=== PATIENT | male | born 1950 | race Caucasian/White ===

== ENCOUNTER 2018-11-11 09:57 | Emergency (ER) | payer MEDICARE, BC ==
[2018-11-11] MEDS ORDERED: NS 0.9% 1000 ML** 1,000 ML IV ONE (10:10)
--- NOTE | 2018-11-11 10:16 | ED ---
Dizziness - HPI Summary HPI Summary: Pt is a 68 y/o male who presents to the ED c/o weakness. He was sent here by Dr. Garza for a low BP reading of 80/40. Pt c/o weakness and dizziness when standing. He denies any CP or SOB. He denies any falls. Pt notes that he saw Dr. Stewart 2 days ago to get cardioverted, but he was not since he was in normal sinus rhythm. PMHx AFib, CHF, COPD. Pt is on Eliquis and ASA. He is a current smoker. - History Of Current Complaint Chief Complaint: EDWeakness Stated Complaint: POSS LOW BLOOD PRESSURE Time Seen by Provider: 11/11/18 10:09 Hx Obtained From: Patient Onset/Duration: Still Present Timing: Hours - [employer] Character: Weak, Dizzy Aggravating Factor(s): Position Change - standing up Alleviating Factor(s): Nothing Associated Signs And Symptoms: Negative: Chest Pain, SOB - Allergies/Home Medications Allergies/Adverse Reactions: Allergies Allergy/AdvReac Type Severity Reaction Status Date / Time Penicillins Allergy Unknown Verified 07/24/18 18:33 Reaction Details Home Medications: Home Medications Amiodarone TAB* [Cordarone TAB*] 100 mg PO DAILY 11/11/18 [History Confirmed 03/24] Aspirin EC TAB* [Ecotrin EC Low Dose 81 MG*] 81 mg PO DAILY 11/11/18 [History Confirmed 11/11/18] Calcium Carbonate [Calcium] 600 mg PO DAILY 11/11/18 [History Confirmed 11/11/18 ] Carvedilol TAB* [Coreg TAB*] 12.5 mg PO QPM 11/11/18 [History Confirmed 11/11/18 ] Carvedilol TAB* [Coreg TAB*] 25 mg PO QAM 11/11/18 [History Confirmed 11/11/18] Cholecalciferol CAP/TAB(NF) [Vitamin D3 CAP/TAB (NF)] 1,000 unit PO DAILY [History Confirmed 11/11/18] Desvenlafaxine(NF) [Pristiq(NF)] 100 mg PO DAILY 11/11/18 [History Confirmed 03/24] Docusate Sodium 250 mg PO DAILY 11/11/18 [History Confirmed 11/11/18] FluvoxaMINE (NF) [Fluvoxamine (NF)] 25 mg PO BEDTIME 11/11/18 [History Confirmed 11/11/18] Multivitamins/Minerals TAB* [Theragran/minerals TAB*] 1 tab PO DAILY 11/11/18 [ History Confirmed 11/11/18] PMH/Surg Hx/FS Hx/Imm Hx Endocrine/Hematology History: Denies: Hx Anticoagulant Therapy, Hx Diabetes, Hx Thyroid Disease Cardiovascular History: Reports: Hx Atrial Fibrillation, Hx Congestive Heart Failure, Hx Hypercholesterolemia Denies: Hx Hypertension, Hx Pacemaker/ICD Respiratory History: Reports: Hx Chronic Obstructive Pulmonary Disease (COPD) Denies: Hx Asthma History: Denies: Hx Renal Disease Musculoskeletal History: Denies: Hx Osteoporosis Sensory History: Reports: Hx Cataracts - 2005 RIGHT EYE, Hx Contacts or Glasses - GLASSES Denies: Hx Hearing Aid Opthamlomology History: Reports: Hx Cataracts - 2005 RIGHT EYE, Hx Contacts or Glasses - GLASSES Neurological History: Denies: Hx Dementia, Hx Seizures Psychiatric History: Reports: Hx Anxiety, Hx Depression Denies: Hx Substance Abuse - Cancer History Cancer Type, 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 Hx Chemotherapy: No - Surgical History Surgery Procedure, Year, and Place: tonsilectomy,hand, Hx Anesthesia Reactions: No Infectious Disease History: No Infectious Disease History: Denies: Hx Hepatitis, Hx Human Immunodeficiency Virus (HIV), Traveled Outside the [place] in Last 30 Days - Family History Known Family History: Negative: Cardiac Disease, Diabetes - Social History Alcohol Use: Rare Hx Substance Use: No Substance Use Type: Reports: None Hx Tobacco Use: Yes Smoking Status (MU): Current Every Day Smoker Type: Cigarettes Have You Smoked in the Last Year: Yes Review of Systems Negative: Chest Pain Negative: Shortness Of Breath Neurological: Other - Dizziness Positive: Weakness All Other Systems Reviewed And Are Negative: Yes Physical Exam - Summary Physical Exam Summary: GENERAL: Patient is a well-developed and nourished M who is lying comfortable in the stretcher. Patient is not in any acute respiratory distress. HEAD AND FACE: Normocephalic EYES: PERRLA, EOMI x 2. EARS: Hearing grossly intact. MOUTH: Oropharynx within normal limits. NECK: Supple, trachea is midline, no adenopathy, no JVD, no carotid bruit. CHEST: Symmetric, no tenderness at palpation LUNGS: Clear to auscultation bilaterally. No wheezing or crackles. CVS: Regular rate and rhythm, S1 and S2 present, no murmurs or gallops appreciated. ABDOMEN: Soft, non-tender. Bowel sounds are normal. No abdominal abnormal pulsations. EXTREMITIES: Full ROM in all major joints, no edema, no cyanosis or clubbing. NEURO: Alert and oriented x 3. No acute neurological deficits. Speech is normal and follows commands. SKIN: Dry and warm Triage Information Reviewed: Yes Vital Signs On Initial Exam: Initial Vitals Temp Pulse Resp BP Pulse Ox 96.6 F 62 20 78/59 94 11/11/18 10:00 11/11/18 10:00 11/11/18 10:00 11/11/18 10:00 11/11/18 10:00 Vital Signs Reviewed: Yes Diagnostics - Vital Signs Vital Signs Temp Pulse Resp BP Pulse Ox 11/11/18 10:00 96.6 F 62 20 78/59 94 - Laboratory Result Diagrams: 11/11/18 10:14 11/11/18 10:14 Lab Statement: Any lab studies that have been ordered have been reviewed, and results considered in the medical decision making process. - Radiology CXR Radiology Interpretation Completed By: Radiologist Summary of Radiographic Findings: HYPERINFLATION. NO ACTIVE CARDIOPULMONARY DISEASE. ED physician reviewed radiology report. - EKG 10:13 Cardiac Rate: Other Rate - AFib - 88 bpm EKG Rhythm: Atrial Fibrillation Summary of EKG Findings: Nonspecific T waves in lateral leads. Prolonged QT interval. Re-Evaluation - Re-Evaluation First Eval Re-Evaluation Time: 11:50 Change: Improved Comment: Pt feels fine. Dizzy Course/Dx - Course Course Of Treatment: Pt is a 68 y/o male who presents to the ED c/o weakness, dizziness, and hypotension. A CXR was negative. An EKG revealed AFib at a rate of 88 bpm, non-specific T waves in lateral leads, and prolonged QT interval. Discussed case with Dr. Peña and Dr. Holden, who believe the orthostatic hypotension is due to the CHF. Pt is now asymptomatic and will be discharged with a final dx of orthostatic hypotension. I discussed results with patient and he reports feeling better. He is hemodynamically stable and safe for discharge. Strict return precautions given and he will otherwise follow up with his PCP. - Diagnoses Provider Diagnoses: Orthostatic hypotension - Provider Notifications Discussed Care Of Patient With: Quincy Peña Time Discussed With Above Provider: 12:00 Instructed by Provider To: Other - Dr. Peña will see the pt in the ED. At 13:50 spoke to MOI Hannon who consulted with Sigrid Holden MD. Dr. Holden believes his orthostatic hypotension is to be expected from his CHF. Pt is currently asymptomatic and can be discharged. Discharge - Sign-Out/Discharge Documenting (check all that apply): Patient Departure - Discharge Patient Received Moderate/Deep Sedation with Procedure: No - Discharge Plan Condition: Stable Disposition: HOME Patient Education Materials: Hypotension (ED) Referrals: Suki Pandya MD [Primary Care Provider] - (1-3 days) Additional Instructions: Follow up with your primary care physician in 1-3 days. RETURN TO THE EMERGENCY DEPARTMENT FOR CHANGING OR WORSENING SYMPTOMS. - Billing Disposition and Condition Condition: STABLE Disposition: Home - Attestation Statements Document Initiated by Scribe: Yes Documenting Scribe: Rita Mcdaniel Provider For Whom Scribe is Documenting (Include Credential): Ashlyn Castano MD Scribe Attestation: Rita Scott, scribed for Ashlyn Castano MD on 11/11/18 at 1838. Scribe Documentation Reviewed: Yes Provider Attestation: The documentation as recorded by the Rita aguilar accurately reflects the service I personally performed and the decisions made by , Ashlyn Castano MD Status of Scribe Document: Viewed
[2018-11-11 10:33] LABS: ABS Basophils 0.1 10^3/ul (0-0.2); ABS Eosinophils 1.1 10^3/ul (0-0.6); ABS Lymphocytes 2.3 10^3/ul (1.0-4.8); ABS Monocytes 0.8 10^3/ul (0-0.8); ABS Neutrophils 4.2 10^3/ul (1.5-7.7); ABS Nucleated RBC 0 10^3/ul; Eosinophil % 13.2 %; Hematocrit 46 % (42-52); Hemoglobin 15.2 g/dl (14.0-18.0); Lymphocyte % 26.6 %; Mean Corpuscular HGB Conc 33 g/dl (31-36); Mean Corpuscular Hemoglobin 30 pg (27-31); Mean Corpuscular Volume 91 fL (80-94); Mean Platelet Volume 7.8 fL (7.4-10.4); Nucleated Red Blood Cells % 0.1; Platelet Count 285 10^3/ul (150-450); Red Blood Count 5.11 10^6/ul (4.00-5.40); Red Cell Distribution Width 16 % (10.5-15); White Blood Count 8.5 10^3/ul (3.5-10.8)
[2018-11-11 10:45] LABS: Activated Partial Thrombo Time 38.9 seconds (26.0-36.3); INR 1.41 (0.77-1.02)
[2018-11-11 10:53] LABS: Albumin/Globulin Ratio 1.4 (1-3); Calcium 10.2 mg/dL (8.6-10.3); EGFR African American 68.5 (>60); EGFR Non-African American 56.6 (>60); Globulin 2.9 g/dL (2-4); Potassium 4.2 mmol/L (3.5-5.0); Total Bilirubin 0.4 mg/dL (0.2-1.0); Total Protein 6.9 g/dL (6.4-8.9)
[2018-11-11 10:54] LABS: Troponin I 0.01 ng/mL (<0.04)
--- OUTSIDE RECORDS SUMMARY | 2018-11-11 11:23 | XMS REPORT | Continuity of Care Document ---
:1950 External Reference #:[id number] Author Name Maru Zavala Care Team Providers Name Role Phone Suki Pandya MD Primary Care Physician Unavailable Payers Type Date Identification Numbers Payment Provider Subscriber Effective: 2017 Policy Number: [id number] Medicare Fanta Doherty PayID: [id number] [address] [place] [address] Effective: 2007 Policy Number: [id number] [facility] Fanta Doherty Group Number: [id number] [address] [address] PayID: [id number] [place] [address] Advance Directives Description No Information Available Problems Date Description Provider Status Onset: 11/22/2010 Chronic obstructive lung disease Suki Pandya M.D. Active Onset: 11/22/2010 Osteoporosis Suki Pandya M.D. Active Onset: 09/09/2016 Tobacco user Stephanie Garza MD Active Onset: 08/20/2018 Atrial fibrillation Suki Pandya M.D. 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 Quit at [facility] 04/15. Resumed 2011 Tobacco Use Start: Unknown End: Former Cigarette Quit smoking in Unknown Smoker July of 2018. Haas started smoking at age 18, smoked 1/2 ppd and more in earlier years Smoking Status Reviewed: 10/16/18 Former Cigarette Quit smoking in Smoker July of 2018. Haas started smoking at age 18, smoked 1/2 ppd and more in earlier years ETOH Use 2011 Denies alcohol use history of alcohol abuse. Quit 06/2012. reports last drink 4 years ago as of 07/23 Tobacco Use Start: Unknown Patient is a current 08-18-2018 currently smoker, smokes every one month non smoker day Recreational Drug Use Denies Drug Use Tobacco Use Start: Unknown 1 1/2PPD x 15 years Exercise Type/Frequency Exercises rarely Allergies, Adverse Reactions, Alerts Date Description Reaction Status Severity Comments 03/16/2010 Penicillin unknown Active Moderate Medications Medication Date Status Form Strength Qnty SIG Indications Ordering Provider Amiodarone HCL 10/16/ Active Tablets 200mg 90tab 1 twice a I48.91 Remy D. 2019 s day for 2 Brand, weeks then M.D. decrease to 1 a day Symbicort 09/09/ Active Aerosol 80-4.5mcg 30.6u 2 puff Stephanie 2015 /Act nits twice a day MD Kayla ( pt does not take) Docusate Sodium 01/04/ Active Capsules 100mg 60cap 1 by mouth Suki 2016 s once a day Mumtaz (currenty M.D. taking 250mg) Spiriva 08/09/ Active Capsules 18mcg 30cap inhale the Suki Handihaler 2012 s contents of Mumtaz, one capsule M.DBrenna in the handihaler once daily Fluvoxamine 06/01/ Active Caps ER 25mg 1 PO QHS Suki Maleate 2011 24HR Shalonda Pandya Multi Vitamin 04/11/ Active Tablets 1 po qd Suki Mens 2010 Shalonda Pandya Aspirin 03/17/ Active Tablets 81mg 30tab 1 tablet Suki 2010 s once daily Shalonda Pandya Vitamin D-3 / Active Tablets 1000Unit 90tab 1 po qd Unknown 0000 s Pristiq / Active 100mg 1 daily Unknown 0000 Olanzapine 00/ Active Tablets 2.5mg 1 by mouth Unknown 0000 every day Calcium 600 00/00/ Active Tablets 600mg 1 by mouth Unknown 0000 every day Eliquis / Active Tablets 5mg 60tab 1 by mouth Suki 0000 s twice a day Shalonda Pandya Carvedilol / Active Tablets 25mg 60tab 1 tab by Suki 0000 s mouth in [place], morning M.DBrenna Carvedilol / Active Tablets 12.5mg 60tab 1 by mouth Suki 0000 s in evening Shalonda Pandya Lasix / Active Tablets 20mg 60tab 1 by mouth Suki 0000 s every day Shalonda Pandya Multaq 09/22/ Hx Tablets 400mg 60tab 1 by mouth I48.91 Remy Bullard 2018 - s twice a day Brand, 10/16/ M.DBrenna 2019 Atovaquone-Prog 01/05/ Hx Tablets 250-100mg 15tab 1 tab by Chuyita Bullard uanil HCL 2017 - s mouth [place], 07/24/ daily, 2 M.D. 2018 days before trip, each day there, 7 days after return Ciprofloxacin 01/05/ Hx Tablets 500mg 6tabs 1 tab by Chuyita Bullard HCL 2017 - mouth twice [place], 07/24/ a day if M.D. 2017 needed for diarrhea Azithromycin 06/03/ Hx Tablets 250mg 6tabs 2 tabs by J44.1 2016 - mouth on , 06/12/ day 1; 1 .DBrenna 2016 tab by mouth every day on days 2-5 Nicotrol 08/15/ Hx Inhaler 10mg 168un use up to Z72.0 Suki 2016 - 16 times [place], 08/19/ daily M.D. 2016 Serevent Diskus 03/13/ Hx Aerosol 50mcg/Dos 60uni 1 2015 - e ts inhalation [place], 09/09/ every 12 M.D. 2016 hours Foradil 08/09/ Hx Capsules 12mcg 60cap [address] [facility] Aerolizer 2012 - s aerolizer [place], 03/13/ twice a day M.D. 2015 Azithromycin 07/06/ Hx Tablets 250mg 6tabs 2 tabs po 465.9 Suki 2013 - on day 1; 1 [place], 07/13/ tab po qd M.D. 2012 on days 2-5 Nicoderm CQ 04/11/ Hx Patches 21mg/24HR 30uni once daily Suki 2010 - 24HR ts [place], M.D. 2017 Nicotine 04/11/ Hx Patches 4mg/24HR 1Mon as directed Suki 2010 - 24HR [place], M.D. 2012 Foradil 04/11/ Hx Capsules 12mcg 60cap [address] [facility] Aerolizer 2010 - prn [place], M.D. 2012 Campral 04/11/ Hx Tablets DR 333mg 120ta 2 tabs PO Suki 2010 - bs bid [place], M.D. 2012 Revia 04/11/ Hx Tablets 50mg 30tab [address] [facility] 2010 - s [place], M.D. 2011 Alendronate 03/11/ Hx Tablets 70mg 12tab take 1 Suki Sodium 2010 - tablet once [place], 05/15/ weekly as M.D. 2016 directed Flovent HFA 11/22/ Hx Aerosol 110mcg/Ac 12gm [address] [facility] 2010 - t twice daily [place], M.D. 2011 Zoloft 05/21/ Hx Tablets 50mg 1 By Mouth Unknown 2009 - Once Daily 2010 Calcium 600 03/19/ Hx Tablets 600mg [address] [facility] 2009 - once daily [place], M.D. 2014 Spiriva 03/19/ Hx Capsules 18mcg 30cap inhale 496 [facility] Handihaler 2009 - s contents of [place], capsule M.D. 2012 by mouth every morning as directed Cymbalta 03/17/ Hx Caps DR 60mg 60cap 1 tablet Unknown 2009 - Part s once daily 2009 Nortriptyline 03/17/ Hx Capsules 10mg 100ca 2 tablets Suki HCL 2009 - ps once daily [place], M.D. 2010 Risperdal 03/17/ Hx Tablets 0.5mg 90tab Suki 2009 - s [place], M.D. 2009 Fosamax 03/16/ Hx Tablets 70mg 12tab one tablet Suki 2009 - s once weekly [place], as directed M.D. 2010 Metoprolol 03/16/ Hx Tablets 25mg 30tab Take 1/2 Suki Tartrate 2009 - s Tablet By Mumtaz, 07/30/ Mouth Twice M.D. 2018 Daily Zoloft / Hx Tablets 100mg 1 tablet Unknown 0000 - once daily 2009 Bactrim / Hx Tablets 400-80mg Unknown 0000 - 2010 Gabapentin / Hx Tablets 300mg 270ta 1 po qd prn Unknown 0000 - bs 2012 Luvox CR / Hx Caps ER 25mg 60cap take 1 tabs Unknown 0000 - 24HR s daily at 06/01/ bedtime 2011 Olanzapine / Hx Tablets 2.5mg take 1 Unknown 0000 - tablet by 07/06/ mouth once 2012 daily as needed Risperdal / Hx Tablets 0.25mg 1 po daily Unknown 0000 - 2015 Tylenol / Hx Capsules 325mg 2 tablets Unknown 0000 - every 4 12/04/ hours as 2018 needed for pain Digoxin / Hx Tablets 250mcg 60tab 1 by mouth Suki - s every day Mumtaz 09/22/ M.DBrenna 2018 Immunizations CPT Code Status Date Vaccine Lot # [id number] Given 07/20/2018 Influenza Virus Vaccine, Quadrivalent, Split, Preservative Free [id number] Given 01/05/2018 Tdap - Tetanus/Diptheria/Acellular Pertussis [id number] Given 01/05/2018 Typhoid Vaccine [id number] 57929 Given 01/05/2018 Hepatitis A Vaccine Adult Dosage [id number] 52166 Given 07/23/2017 Influenza Virus Vaccine, Quadrivalent, Split, Preservative Free [id number] Given 08/27/2016 Flu Vaccine NOS [id number] Given 07/06/2015 Influenza Virus Vaccine, Quadrivalent, Split, [id number] Preservative Free 18280 Given 07/06/2015 Pneumococcal Conjugate Vaccine 13 Valent For [id number] Intramuscular Use 65615 Given 07/13/2013 Flu Vaccine Split Virus Preservative Free For [id number] Indiv 3Yr Older 18197 Given 06/04/2013 Pneumonia Vaccine [id number] 08192 Given 10/03/2009 Administration Swine Flu Shot 04990 Given 10/03/2009 Influenza Virus Vaccine, Pandemic Formulation 12286 Given 03/17/2009 Zoster (Zostavax) 46261 Given 08/17/2008 Hepatitis B Vaccine Adult Dosage 73896 Given 08/17/2008 Hepatitis B Vaccine Adult Dosage 69446 Given 03/17/2008 Hepatitis B Vaccine Adult Dosage 66374 Given 03/17/2008 Hepatitis B Vaccine Adult Dosage 45372 Given 02/15/2008 Hepatitis B Vaccine Adult Dosage 87965 Given 02/15/2008 Hepatitis B Vaccine Adult Dosage 65432 Given 11/10/2006 Tdap - Tetanus/Diptheria/Acellular Pertussis Vital Signs Date Vital Result Comment 10/16/2018 11:04am Height 72 inches 6'0" Weight 155.00 lb with shoes Heart Rate 50 /min irreg BP Systolic Sitting 102 mmHg Lue, reg cuff BP Diastolic Sitting 70 mmHg Lue, reg cuff BP Systolic Standing 92 mmHg Lue, reg cuff BP Diastolic Standing 70 mmHg Lue, reg cuff Respiratory Rate 12 /min BMI (Body Mass Index) 21.0 kg/m2 Ejection Fraction 20-25% 09/22/18 09/09/2018 8:52am Height 72 inches 6'0" Weight 152.00 lb Heart Rate 52 /min BP Systolic Sitting 92 mmHg BP Diastolic Sitting 60 mmHg Respiratory Rate 14 /min O2 % BldC Oximetry 94 % BMI (Body Mass Index) 20.6 kg/m2 08/20/2018 4:31pm Height 72 inches 6'0" Weight 156.00 lb Heart Rate 75 /min BP Systolic Sitting 110 mmHg BP Diastolic Sitting 68 mmHg O2 % BldC Oximetry 95 % BMI (Body Mass Index) 21.2 kg/m2 08/18/2018 2:25pm Height 72 inches 6'0" Weight 155.38 lb Heart Rate 58 /min BP Systolic Sitting 110 mmHg regular adult cuff left arm BP Diastolic Sitting 84 mmHg regular adult cuff left arm O2 % BldC Oximetry 95 % at rest on room air BMI (Body Mass Index) 21.1 kg/m2 Ejection Fraction <21% 07-26-2018 08/06/2018 3:08pm Height 72 inches 6'0" Weight 160.00 lb Heart Rate 63 /min BP Systolic Sitting 93 mmHg BP Diastolic Sitting 72 mmHg O2 % BldC Oximetry 96 % BMI (Body Mass Index) 21.7 kg/m2 07/24/2018 4:04pm Height 72 inches 6'0" Weight 180.38 lb Heart Rate 86 /min Body Temperature 97.7 F O2 % BldC Oximetry 94 % BMI (Body Mass Index) 24.5 kg/m2 01/05/2018 1:20pm Height 72 inches 6'0" Weight 173.12 lb Heart Rate 84 /min BP Systolic Sitting 110 mmHg BP Diastolic Sitting 58 mmHg Respiratory Rate 14 /min Body Temperature 96.9 F BMI (Body Mass Index) 23.5 kg/m2 09/09/2017 10:00am Height 72 inches 6'0" Weight 170.00 lb w/ shoes Heart Rate 64 /min reg BP Systolic Sitting 104 mmHg Lue, reg cuff BP Diastolic Sitting 70 mmHg Lue, reg cuff Respiratory Rate 16 /min O2 % BldC Oximetry 98 % on Ra BMI (Body Mass Index) 23.1 kg/m2 08/19/2017 2:30pm Height 72 inches 6'0" Weight 165.50 lb Heart Rate 63 /min BP Systolic 108 mmHg BP Diastolic 54 mmHg Body Temperature 96.0 F O2 % BldC Oximetry 94 % BMI (Body Mass Index) 22.4 kg/m2 06/03/2017 11:28am Height 72 inches 6'0" Weight 161.00 lb Heart Rate 66 /min BP Systolic 100 mmHg BP Diastolic 58 mmHg Body Temperature 96.7 F O2 % BldC Oximetry 95 % BMI (Body Mass Index) 21.8 kg/m2 09/09/2016 10:05am Height 72 inches 6'0" Weight 170.00 lb Heart Rate 60 /min BP Systolic Sitting 112 mmHg BP Diastolic Sitting 62 mmHg Respiratory Rate 16 /min O2 % BldC Oximetry 96 % BMI (Body Mass Index) 23.1 kg/m2 08/15/2016 11:24am Height 72 inches 6'0" Weight 168.00 lb Heart Rate 56 /min BP Systolic Sitting 94 mmHg BP Diastolic Sitting 62 mmHg Respiratory Rate 15 /min Body Temperature 97.5 F O2 % BldC Oximetry 98 % BMI (Body Mass Index) 22.8 kg/m2 01/05/2016 2:17pm Weight 178.00 lb Heart Rate 61 /min BP Systolic Sitting 95 mmHg BP Diastolic Sitting 65 mmHg Body Temperature 96.7 F O2 % BldC Oximetry 98 % 07/12/2015 10:43am Height 72 inches 6'0" Weight 161.00 lb Pain Level 1 BMI (Body Mass Index) 21.8 kg/m2 07/06/2015 2:55pm Height 72 inches 6'0" Weight 161.00 lb Heart Rate 58 /min BP Systolic Sitting 94 mmHg BP Diastolic Sitting 49 mmHg Body Temperature 96.3 F O2 % BldC Oximetry 97 % BMI (Body Mass Index) 21.8 kg/m2 12/05/2014 10:02am Weight 167.50 lb Heart Rate 69 /min BP Systolic Sitting 106 mmHg BP Diastolic Sitting 61 mmHg O2 % BldC Oximetry 98 % 06/07/2014 3:30pm Height 72.5 inches 6'0.50" Weight 160.00 lb Heart Rate 60 /min BP Systolic Sitting 88 mmHg BP Diastolic Sitting 60 mmHg Body Temperature 97.1 F BMI (Body Mass Index) 21.4 kg/m2 08/09/2013 3:26pm Weight 156.00 lb Heart Rate 68 /min BP Systolic Sitting 122 mmHg BP Diastolic Sitting 80 mmHg 07/13/2013 9:33am Weight 151.00 lb Heart Rate 64 /min BP Systolic Sitting 124 mmHg BP Diastolic Sitting 78 mmHg Body Temperature 95.7 F O2 % BldC Oximetry 96 % Peak Flow Meter 260 250; 260; 230 07/06/2013 9:12am Weight 156.00 lb Heart Rate 68 /min BP Systolic Sitting 118 mmHg BP Diastolic Sitting 70 mmHg Body Temperature 97.8 F O2 % BldC Oximetry 96 % Peak Flow Meter 170 160; 170; 170 06/04/2013 2:02pm Height 72.5 inches 6'0.50" Weight 156.00 lb Heart Rate 70 /min BP Systolic Sitting 118 mmHg BP Diastolic Sitting 60 mmHg BMI (Body Mass Index) 20.9 kg/m2 12/03/2012 10:21am Height 72.5 inches 6'0.50" Weight 155.75 lb Heart Rate 72 /min BP Systolic Sitting 90 mmHg BP Diastolic Sitting 60 mmHg BMI (Body Mass Index) 20.8 kg/m2 06/01/2012 10:08am Height 72.5 inches 6'0.50" Weight 152.00 lb Heart Rate 64 /min BP Systolic Sitting 104 mmHg BP Diastolic Sitting 66 mmHg BMI (Body Mass Index) 20.3 kg/m2 02/11/2012 9:47am Height 72.5 inches 6'0.50" Weight 148.00 lb Heart Rate 68 /min BP Systolic Sitting 114 mmHg BP Diastolic Sitting 64 mmHg BMI (Body Mass Index) 19.8 kg/m2 11/15/2011 3:26pm Height 72.5 inches 6'0.50" Weight 147.00 lb Heart Rate 60 /min BP Systolic Sitting 100 mmHg BP Diastolic Sitting 60 mmHg BMI (Body Mass Index) 19.7 kg/m2 09/05/2011 9:55am Height 72.5 inches 6'0.50" Weight 145.00 lb Heart Rate 60 /min BP Systolic Sitting 100 mmHg L BP Diastolic Sitting 60 mmHg L BMI (Body Mass Index) 19.4 kg/m2 05/31/2011 10:11am Height 72.5 inches 6'0.50" Weight 152.00 lb Heart Rate 72 /min BP Systolic Sitting 98 mmHg L BP Diastolic Sitting 58 mmHg L BMI (Body Mass Index) 20.3 kg/m2 04/11/2011 11:47am Height 73 inches 6'1" Weight 156.00 lb Heart Rate 70 /min BP Systolic Sitting 98 mmHg BP Diastolic Sitting 64 mmHg BMI (Body Mass Index) 20.6 kg/m2 11/22/2010 10:28am Weight 148.00 lb Heart Rate 76 /min BP Systolic 104 mmHg BP Diastolic 60 mmHg O2 % BldC Oximetry 97 % 05/21/2010 3:56pm Weight 152.00 lb Heart Rate 76 /min BP Systolic 92 mmHg BP Diastolic 60 mmHg 03/19/2010 7:29pm Height 72 inches 6'0" Weight 155.50 lb Heart Rate 68 /min BP Systolic 106 mmHg BP Diastolic 70 mmHg O2 % BldC Oximetry 95 % BMI (Body Mass Index) 21.1 kg/m2 Results Test Date Facility Test Result H/L Range Note Laboratory test 08/10/2018 [facility] Digoxin 1.2 ng/ml N 0.8- 2.[address] [place] [address] [phone] Lipid Profile 08/06/2018 [facility] Triglycerides 91 mg/dL 1, 2 (Trig/Chol/HDL) [address] [place] [address] [phone] Cholesterol 154 mg/dL 3 HDL Cholesterol 47.0 mg/dL 4 LDL Cholesterol 89 mg/dL 5 Comp Metabolic Panel 08/06/2018 [facility] Sodium 143 mmol/L N 135-145 [address] [place] [address] [phone] Potassium 3.8 mmol/L N 3.5-5.0 Chloride 104 mmol/L N 101-111 Co2 Carbon Dioxide 36 mmol/L High 22-32 Anion Gap 3 mmol/L N 2-11 Glucose 91 mg/dL N 70-100 Blood Urea Nitrogen 17 mg/dL N 6-24 Creatinine 1.02 mg/dL N 0.67-1.17 BUN/Creatinine Ratio 16.7 N 8-20 Calcium 9.3 mg/dL N 8.6-10.3 Total Protein 6.0 g/dL Low 6.4-8.9 Albumin 3.8 g/dL N 3.2-5.2 Globulin 2.2 g/dL N 2-4 Albumin/Globulin Ratio 1.7 N 1-3 Total Bilirubin 0.60 mg/dL N 0.2-1.0 Alkaline Phosphatase 70 U/L N 34-104 Alt 43 U/L N 7-52 Ast 30 U/L N 13-39 Egfr Non- 72.2 >60 Egfr 87.4 >60 6 Laboratory test 08/06/2018 [facility] Digoxin 1.2 ng/ml N 0.8- 2.0 [address] [place] [address] [phone] Laboratory test 07/24/2018 [facility] Troponin-I 0.05 ng/mL High <0.[address] (TnI) [place] [address] [phone] CBC Auto Diff 07/24/2018 [facility] White Blood 9.8 N 3.5- 10.[address] Count 10^3/[place] [address] [phone] Red Blood Count 4.74 10^6/uL N 4.00-5.40 Hemoglobin 14.3 g/dL N 14.0-18.0 Hematocrit 43 % N 42-52 Mean Corpuscular Volume 91 fL N 80-94 Mean Corpuscular Hemoglobin 30 pg N 27-31 Mean Corpuscular HGB Conc 33 g/dL N 31-36 Red Cell Distribution Width 15 % N 10.5-15 Platelet Count 217 10^3/uL N 150-450 Mean Platelet Volume 8.6 um3 N 7.4-10.4 Abs Neutrophils 6.4 10^3/uL N 1.5-7.7 Abs Lymphocytes 1.9 10^3/uL N 1.0-4.8 Abs Monocytes 1.2 10^3/uL High 0-0.8 Abs Eosinophils 0.2 10^3/uL N 0-0.6 Abs Basophils 0.1 10^3/uL N 0-0.2 Abs Nucleated RBC 0 10^3/uL Granulocyte % 65.6 % N 38-83 Lymphocyte % 19.8 % Low 25-47 Monocyte % 12.0 % High 0-7 Eosinophil % 2.0 % N 0-6 Basophil % 0.6 % N 0-2 Nucleated Red Blood Cells % 0.1 Inr/Protime 07/24/2018 [facility] Inr 1.53 High 0.77-1.[address] [place] [address] [phone] Laboratory test 07/24/2018 [facility] Partial 27.2 N 26.0- 36.[address] [place] [address] Time PTT [phone] Lactic Acid 2.0 mmol/L N 0.5-2.0 9 B-Type Natriuretic Peptide BNP 1964 pg/mL High 10 Comp Metabolic Panel 07/24/2018 [facility] Sodium 137 mmol/L N 135-[address] [place] [address] [phone] Potassium 4.4 mmol/L N 3.5-5.0 Chloride 104 mmol/L N 101-111 Co2 Carbon Dioxide 24 mmol/L N 22-32 Anion Gap 9 mmol/L N 2-11 Glucose 125 mg/dL High 70-100 Blood Urea Nitrogen 23 mg/dL N 6-24 Creatinine 1.06 mg/dL N 0.67-1.17 BUN/Creatinine Ratio 21.7 High 8-20 Calcium 9.7 mg/dL N 8.6-10.3 Total Protein 5.9 g/dL Low 6.4-8.9 Albumin 3.7 g/dL N 3.2-5.2 Globulin 2.2 g/dL N 2-4 Albumin/Globulin Ratio 1.7 N 1-3 Total Bilirubin 0.90 mg/dL N 0.2-1.0 Alkaline Phosphatase 87 U/L N 34-104 Alt 314 U/L High 7-52 Ast 290 U/L High 13-39 Egfr Non- 69.1 >60 Egfr 83.6 >60 11 Laboratory test 07/24/2018 [facility] Magnesium 1.6 mg/dL Low 1.9-2.7 finding [address] [place] [address] [phone] Troponin-I (TnI) 0.04 ng/mL High <0.04 12 Thyroxine 8.63 g/mL N 6.09-12.23 TSH (Thyroid Stim Horm) 2.88 mcIU/mL N 0.34-5.60 D Dimer Quantitative 622 ng/mL High Less Than 230 13 Urinalysis Profile 07/24/2018 [facility] Urine Color Straw [address] [place] [address] [phone] Urine Appearance Clear Urine Specific [place] 1.006 Low 1.010-1.030 Urine pH 5.0 N 5-9 Urine Urobilinogen Negative Negative Urine Ketones Negative Negative Urine Protein Negative Negative Urine Leukocytes Negative Negative Urine Blood Negative Negative Urine Nitrite Negative Negative Urine Bilirubin Negative Negative Urine Glucose Negative Negative Laboratory test 03/09/2018 [facility] PSA Screening 1.719 ng/mL 0-4.0 14 finding [address] [place] [address] [phone] Lipid Profile 08/18/2017 [facility] Triglycerides 108 mg/dL 15 (Trig/Chol/HDL) [address] [place] [address] [phone] Cholesterol 188 mg/dL 16 HDL Cholesterol 62.2 mg/dL 17 LDL Cholesterol 104 mg/dL 18 Comp Metabolic Panel 08/18/2017 [facility] Sodium 143 mmol/L N 133-145 [address] [place] [address] [phone] Potassium 4.2 mmol/L N 3.5-5.0 Chloride 107 mmol/L N 101-111 Co2 Carbon Dioxide 32 mmol/L N 22-32 Anion Gap 4 mmol/L N 2-11 Glucose 89 mg/dL N 70-100 Blood Urea Nitrogen 20 mg/dL N 6-24 Creatinine 0.87 mg/dL N 0.67-1.17 BUN/Creatinine Ratio 23.0 High 8-20 Calcium 9.2 mg/dL N 8.6-10.3 Total Protein 5.9 g/dL Low 6.4-8.9 Albumin 3.9 g/dL N 3.2-5.2 Globulin 2.0 g/dL N 2-4 Albumin/Globulin Ratio 2.0 N 1-3 Total Bilirubin 0.30 mg/dL N 0.2-1.0 Alkaline Phosphatase 53 U/L N 34-104 Alt 20 U/L N 7-52 Ast 17 U/L N 13-39 Egfr Non- 87.0 >60 Egfr 111.9 >60 19 Laboratory test 09/03/2016 [facility] Surgical Interface SEE RESULT 20, [address] [place] [address] [phone] Lipid Profile 08/12/2016 [facility] Triglycerides 117 mg/dL N 22 (Trig/Chol/HDL) [address] [place] [address] [phone] Cholesterol 195 mg/dL N 23 HDL Cholesterol 61.3 mg/dL N 24 LDL Cholesterol 110 mg/dL N 25 Comp Metabolic Panel 08/12/2016 [facility] Sodium 140 mmol/L N 133-[address] [place] [address] [phone] Potassium 3.9 mmol/L N 3.5-5.0 Chloride 105 mmol/L N 101-111 Co2 Carbon Dioxide 30 mmol/L N 22-32 Anion Gap 5 mmol/L N 2-11 Glucose 88 mg/dL N 70-100 Blood Urea Nitrogen 11 mg/dL N 6-24 Creatinine 0.80 mg/dL N 0.67-1.17 BUN/Creatinine Ratio 13.8 N 8-20 Calcium 9.3 mg/dL N 8.6-10.3 Total Protein 6.3 g/dL Low 6.4-8.9 Albumin 4.1 g/dL N 3.2-5.2 Globulin 2.2 g/dL N 2-4 Albumin/Globulin Ratio 1.9 N 1-3 Total Bilirubin 0.40 mg/dL N 0.2-1.0 Alkaline Phosphatase 59 U/L N 34-104 Alt 17 U/L N 7-52 Ast 17 U/L N 13-39 Egfr Non- 96.1 N >60 Egfr 123.6 N >60 26 Laboratory test 08/12/2016 [facility] Vitamin D 45.5 ng/mL N 30-[address] Total 25(Oh) [place] [address] [phone] Hemoglobin A1c (Glyco HGB) 5.8 % N Less than 6.0 27 Basic Metabolic Panel 02/05/2016 [facility] Sodium 141 mmol/L N 133-145 [address] [place] [address] [phone] Potassium 4.0 mmol/L N 3.5-5.0 Chloride 105 mmol/L N 101-111 Co2 Carbon Dioxide 31 mmol/L N 22-32 Anion Gap 5 mmol/L N 2-11 Glucose 71 mg/dL N 70-100 Blood Urea Nitrogen 10 mg/dL N 6-24 Creatinine 0.82 mg/dL N 0.67-1.17 BUN/Creatinine Ratio 12.2 N 8-20 Calcium 9.2 mg/dL N 8.6-10.3 Egfr Non- 93.7 N >60 Egfr 120.5 N >60 28 Laboratory test 02/05/2016 [facility] PSA Screening 1.344 ng/mL N 0-4.0 29 finding [address] [place] [address] [phone] Lipid Profile 01/04/2016 [facility] Triglycerides 118 mg/dL N 30 (Trig/Chol/HDL) [address] [place] [address] [phone] Cholesterol 198 mg/dL N 31 HDL Cholesterol 58.6 mg/dL N 32 LDL Cholesterol 116 mg/dL N 33 Comp Metabolic Panel 01/04/2016 [facility] Sodium 141 mmol/L N 133-145 [address] [place] [address] [phone] Potassium 4.3 mmol/L N 3.5-5.0 Chloride 105 mmol/L N 101-111 Co2 Carbon Dioxide 31 mmol/L N 22-32 Anion Gap 5 mmol/L N 2-11 Glucose 95 mg/dL N 70-100 Blood Urea Nitrogen 16 mg/dL N 6-24 Creatinine 0.83 mg/dL N 0.67-1.17 BUN/Creatinine Ratio 19.3 N 8-20 Calcium 9.5 mg/dL N 8.6-10.3 Total Protein 5.6 g/dL Low 6.4-8.9 Albumin 4.0 g/dL N 3.2-5.2 Globulin 1.6 g/dL Low 2-4 Albumin/Globulin Ratio 2.5 N 1-3 Total Bilirubin 0.30 mg/dL N 0.2-1.0 Alkaline Phosphatase 58 U/L N 34-104 Alt 18 U/L N 7-52 Ast 16 U/L N 13-39 Egfr Non- 92.4 N >60 Egfr 118.8 N >60 34 Basic Metabolic Panel 06/26/2015 [facility] Sodium 139 mmol/L N 133-[address] [place] [address] [phone] Potassium 4.2 mmol/L N 3.5-5.0 Chloride 103 mmol/L N 101-111 Co2 Carbon Dioxide 30 mmol/L N 22-32 Anion Gap 6 mmol/L N 2-11 Glucose 97 mg/dL N 70-100 Blood Urea Nitrogen 13 mg/dL N 6-24 Creatinine 0.82 mg/dL N 0.67-1.17 BUN/Creatinine Ratio 15.9 N 8-20 Calcium 9.4 mg/dL N 8.6-10.3 Egfr Non- 93.7 N >60 Egfr 120.5 N >60 35 Laboratory 06/26/2015 [facility] PSA 0.846 ng/mL N 0-4.0 36 test finding [address] [place] [address] [phone] Laboratory 12/05/2014 [facility] Hepatitis C Nonreactive N Nonreactive test finding [address] [place] [address] [phone] Hemoglobin A1c 5.8 % N Less than 6.0 37 Vitamin D, 25 12/05/2014 [facility] 25-Hydroxy Vitamin <4.0 ng/ mL N Hydroxy [address] [place] [address] [phone] 25-Hydroxy Vitamin D3 54 ng/mL N 25-Hydroxy Vitamin D Total 54 ng/mL N 38 Comp Metabolic Panel 12/05/2014 [facility] Sodium 141 mmol/L N 133-[address] [place] [address] [phone] Potassium 3.9 mmol/L N 3.5-5.0 Chloride 104 mmol/L N 101-111 Co2 Carbon Dioxide 33 mmol/L High 22-32 Anion Gap 4 mmol/L N 2-11 Glucose 69 mg/dL Low 70-100 Blood Urea Nitrogen 12 mg/dL N 6-24 Creatinine 0.85 mg/dL N 0.67-1.17 BUN/Creatinine Ratio 14.1 N 8-20 Calcium 9.7 mg/dL N 8.6-10.3 Total Protein 6.3 g/dL Low 6.4-8.9 Albumin 4.3 g/dL N 3.2-5.2 Globulin 2.0 g/dL N 2-4 Albumin/Globulin Ratio 2.2 N 1-3 Total Bilirubin 0.20 mg/dL N 0.2-1.0 Alkaline Phosphatase 52 U/L N 34-104 Alt 20 U/L N 7-52 Ast 19 U/L N 13-39 Egfr Non- 90.2 N >60 Egfr 116.0 N >60 39 Lipid Profile 12/05/2014 [facility] Triglycerides 124 mg/dL N 40 (Trig/Chol/HDL) [address] [place] [address] [phone] Cholesterol 197 mg/dL N 41 HDL Cholesterol 59.6 mg/dL N 42 LDL Cholesterol 113 mg/dL N 43 Lipid Profile 05/21/2013 [facility] Triglycerides 80 mg/dL 40 -200 (Trig/Chol/HDL) [address] [place] [address] [phone] Cholesterol 205 mg/dL High Less than 200 HDL Cholesterol 59 mg/dL 40-60 44 Cholesterol/HDL Ratio 3.5 Average 1-4.44 LDL Cholesterol 130.0 High Less Than 100 45 Comp Metabolic Panel 05/21/2013 [facility] Sodium 139 mmol/L 133-145 [address] [place] [address] [phone] Potassium 4.3 mmol/L 3.5-5.0 Chloride 102 mmol/L 101-111 Co2 Carbon Dioxide 32.0 mmol/L 22-32 Anion Gap 5.0 mmol/L 2-11 Glucose 87 mg/dL 70-100 Blood Urea Nitrogen 9 mg/dL 6-24 Creatinine 0.80 mg/dL 0.50-1.40 BUN/Creatinine Ratio 11.3 8-20 Calcium 9.9 mg/dL 8.1-9.9 Total Protein 5.6 g/dL Low 6.2-8.1 Albumin 3.9 g/dL 3.2-5.2 Globulin 1.7 g/dL Low 2-4 Albumin/Globulin Ratio 2.3 1-3 Total Bilirubin 0.5 mg/dL 0.4-1.5 Alkaline Phosphatase 59 U/L 30-110 Alt 29 U/L 14-54 Ast 25 U/L 12-42 Egfr Non- 97.0 >60 Egfr 124.8 >60 46 Laboratory test 05/21/2013 [facility] Hemoglobin A1c 5.7 % Less than [address] [place] [address] [phone] CBC Auto Diff 05/21/2013 [facility] White Blood 6.8 4.8-10.[address] Count 10^3/[place] [address] [phone] Red Blood Count 4.29 10^6/uL 4.0-5.4 Hemoglobin 13.4 g/dL Low 14.0-18.0 Hematocrit 40 % Low 42-52 Mean Corpuscular Volume 93 fL 80-94 Mean Corpuscular Hemoglobin 31 pg 27-31 Mean Corpuscular HGB Conc 34 g/dL 31-36 Red Cell Distribution Width 13 % 10.5-15 Platelet Count 245 10^3/uL 150-450 Mean Platelet Volume 8 um3 7.4-10.4 Abs Neutrophils 2.5 10^3/uL 1.5-7.7 Abs Lymphocytes 2.7 10^3/uL 1.0-4.8 Abs Monocytes 0.6 10^3/uL 0-0.8 Abs Eosinophils 1.0 10^3/uL High 0-0.6 Abs Basophils 0.1 10^3/uL 0-0.2 Abs Nucleated RBC 0 10^3/uL Manual Differential 05/21/2013 [facility] Neutrophil % 32 % Low 38-[address] [place] [address] [phone] Lymphocytes % 51 % High 25-47 Monocytes % 4 % 0-13 Eosinophils % 9 % High 0-6 Basophil % 2 % 0-2 Reactive Lymph % 2 % 0-6 RBC Morphology Normal Normal Laboratory test 05/21/2013 [facility] Pathologist (SEE NOTE) [address] [place] [address] [phone] Laboratory test 05/21/2013 [facility] PSA Diagnostic 1.20 ng/mL 0-4.0 [address] [place] [address] [phone] CBC Auto Diff 08/25/2012 [facility] White Blood Count 8.1 10^3/ uL 4.8-[address] [place] [address] [phone] Red Blood Count 4.23 10^6/uL 4.0-5.4 Hemoglobin 13.5 g/dL Low 14.0-18.0 Hematocrit 40 % Low 42-52 Mean Corpuscular Volume 94 fL 80-94 Mean Corpuscular Hemoglobin 32 pg High 27-31 Mean Corpuscular HGB Conc 34 g/dL 31-36 Red Cell Distribution Width 13 % 10.5-15 Platelet Count 219 10^3/uL 150-450 Mean Platelet Volume 8 um3 7.4-10.4 Abs Neutrophils 3.8 10^3/uL 1.5-7.7 Abs Lymphocytes 2.6 10^3/uL 1.0-4.8 Abs Monocytes 0.7 10^3/uL 0-0.8 Abs Eosinophils 0.9 10^3/uL High 0-0.6 Abs Basophils 0.1 10^3/uL 0-0.2 Abs Nucleated RBC 0 10^3/uL Granulocyte % 46.9 % 38-83 Lymphocyte % 32.8 % 25-47 Monocyte % 8.5 % 1-9 Eosinophil % 11.1 % High 0-6 Basophil % 0.7 % 0-2 Nucleated Red Blood Cells % 0 Vitamin B12 And 08/25/2012 [facility] Vitamin B12 702 pg/mL 180-914 Folate Serum [address] [place] [address] [phone] Folate 24.5 NG/ML High 2-16 Laboratory test 08/25/2012 [facility] Ferritin 61 NG/ML 24- 336 finding [address] [place] [address] [phone] Iron & Iron Binding 08/25/2012 [facility] Iron 125 UG/ML 45- 182 Capacity [address] [place] [address] [phone] Unsaturated Iron Binding 210 g/dL Total Iron Binding Capacity 335 g/dL 250-450 Transferrin 239.1 % Iron Saturation 37 % 15-55 Laboratory test 08/25/2012 [facility] LDH 141 U/L 95-185 finding [address] [place] [address] [phone] Laboratory test 06/10/2012 [facility] PSA,Diagnostic 1.01 0- 4 [address] NG/[place] [address] [phone] Laboratory test 06/10/2012 [facility] Hemoglobin A1c 5.8 % Less Than [address] [place] [address] [phone] Lipid Profile 06/10/2012 [facility] Triglyceride 84 mg/dL 40- 200 (Trig/Chol/HDL) [address] [place] [address] [phone] Cholesterol 192 mg/dL Less Than 200 52 High Density Lipoprotein 62 mg/dL High 40-60 53 Cholesterol/HDL Ratio 3.10 AVERAGE 1-4.97 Low Density Lipoprotein 113 mg/dL High Less Than 100 54 Comp Metabolic Panel 06/10/2012 [facility] Sodium 139 mmol/L 135-[address] [place] [address] [phone] Potassium 4.2 mmol/L 3.5-5.0 Chloride 105 mmol/L 101-111 Co2 (Carbon Dioxide) 29.0 mmol/L 22-32 Anion Gap 5.0 mmol/L 2-11 55 Glucose 90 mg/dL 70-100 BUN 15 mg/dL 6-24 Creatinine 0.7 mg/dL 0.50-1.40 One Over Creatinine 1.42 BUN/Creatinine Ratio 21.4 High 8-20 Calcium 9.1 mg/dL 8.1-9.9 Total Protein 6.2 GM/DL 6.2-8.1 Albumin 4.1 GM/DL 3.2-5.2 Globulin 2.1 GM/DL 2-4 Albumin/Globulin Ratio 2.0 1-3 Bilirubin Total 0.6 mg/dL 0.4-1.5 56 Alkaline Phosphatase 56 U/L 39-117 Alt (SGPT) 25 U/L 17-63 Ast (Sgot) 23 U/L 12-42 eGFR Non- 113.5 > 60 eGFR 146.0 > 60 57 CBC Auto Diff 06/10/2012 [facility] White Blood 7.9 CUMM 4.8- 10.[address] [place] [address] [phone] Red Cell Count 4.02 CUMM Low 4.6-6.2 Hemoglobin 13.3 g/dL Low 14.0-18.0 Hematocrit 38 % Low 42-52 Mean Corpuscular Volume 94 um3 80-94 Mean Corpuscular Hemoglob 33 pg High 27-31 Mean Corpuscular HGB Cone 35 g/dL 32-36 Redcell Distribution WDTH 13 % 10.5-15 Platelet Count 197 CUMM 150-450 Mean Platelet Volume 8.6 um3 7.4-10.4 Gran % 41.1 % 38-83 Lymph % 34.9 % 20-45 Mononuclear % 8.4 % 1-9 Eosinophil % 14.8 % High 0-6 Basophil % 0.8 % 0-2 Abs Lymphs 2.8 1.0-4.8 Abs Mononuclear 0.7 0-0.8 Absolute Neutrophil Count 3.3 1.5-7.7 Abs Eosinophils 1.2 High 0-0.6 Abs Basophils 0.1 0-0.2 CBC Auto Diff 03/13/2012 [facility] White Blood 8.1 CUMM 4.8- 10.[address] [place] [address] [phone] Red Cell Count 4.33 CUMM Low 4.6-6.2 Hemoglobin 13.9 g/dL Low 14.0-18.0 Hematocrit 41 % Low 42-52 Mean Corpuscular Volume 94 um3 80-94 Mean Corpuscular Hemoglob 32 pg High 27-31 Mean Corpuscular HGB Cone 34 g/dL 32-36 Redcell Distribution WDTH 14 % 10.5-15 Platelet Count 236 CUMM 150-450 Mean Platelet Volume 8.1 um3 7.4-10.4 Gran % 57.9 % 38-83 Lymph % 30.5 % 25-47 Mononuclear % 9.2 % High 1-9 Eosinophil % 2.1 % 0-6 Basophil % 0.3 % 0-2 Abs Lymphs 2.5 1.0-4.8 Abs Mononuclear 0.8 0-0.8 Absolute Neutrophil Count 4.7 1.5-7.7 Abs Eosinophils 0.2 0-0.6 Abs Basophils 0 0-0.2 Comp Metabolic Panel 03/13/2012 [facility] Sodium 138 mmol/L 135-[address] [place] [address] [phone] Potassium 3.7 mmol/L 3.5-5.0 Chloride 99 mmol/L Low 101-111 Co2 (Carbon Dioxide) 29.0 mmol/L 22-32 Anion Gap 10.0 mmol/L 2-11 58 Glucose 212 mg/dL High 70-100 BUN 25 mg/dL High 6-24 Creatinine 1.3 mg/dL 0.50-1.40 One Over Creatinine 0.76 BUN/Creatinine Ratio 19.2 8-20 Calcium 9.8 mg/dL 8.1-9.9 Total Protein 6.2 GM/DL 6.2-8.1 Albumin 3.9 GM/DL 3.2-5.2 Globulin 2.3 GM/DL 2-4 Albumin/Globulin Ratio 1.7 1-3 Bilirubin Total 0.8 mg/dL 0.4-1.5 59 Alkaline Phosphatase 69 U/L 39-117 Alt (SGPT) 45 U/L 17-63 Ast (Sgot) 38 U/L 12-42 eGFR Non- 55.6 > 60 eGFR 71.5 > 60 60 Laboratory test 03/13/2012 [facility] Acetaminophen < 10 g/mL Low 10-30 [address] [place] [address] [phone] Alcohol < 10.0 mg/dL None Detected 62 Salicylate < 4.0 mg/dL Less Than 30 63 Urine Drug 03/13/2012 [facility] Amphetamines NONE DETECTED None SCR ED & [address] Urine Screen [place] [address] [phone] Barbituates Urine Screen NONE DETECTED None Detect Benzodiazepine Ur Screen NONE DETECTED None Detect Cannabinoid Urine Screen NONE DETECTED None Detect Cocaine Metabolites Urine NONE DETECTED None Detect Opiates Urine Screen NONE DETECTED None Detect PCP Urine Screen NONE DETECTED None Detect 64 Urinalysis W/Microscopic 03/13/2012 [facility] Ua Color YELLOW Yellow [address] [place] [address] [phone] Appearance-Urine CLEAR Clear Specific [place]-Ur 1.024 1.010-1.030 Esterase-Urine NEGATIVE Negative Nitrite NEGATIVE Negative Tedjaencqfct-Rp-BNP NEGATIVE Negative Protein-Urine NEGATIVE Negative PH-Urine 5.5 5-9 Blood-Urine TRACE Abnormal Negative Ketones-Urine NEGATIVE Negative Bilirubin-Ur NEGATIVE Negative Glucose-Urine 1+ Abnormal Negative Hyaline Casts-Urine 0-3 0-2 WBC-Urine 0-2 0-5 RBC-Urine RARE 0-2 Mucus Urine SMALL None Epith Cells-Ur MODERATE None Bacteria-Urine 1+ None Surgical 08/13/2011 [facility] Surgical [address] Pathology <SEE NOTE> [place] [address] [phone] CBC Auto Diff 06/01/2011 [facility] White Blood 8.5 CUMM 4.8 - [address] Count 10.8 [place], [place] [address] [phone] Red Cell Count 4.46 CUMM Low 4.6-6.2 Hemoglobin 14.6 g/dL 14.0-18.0 Hematocrit 42 % 42-52 Mean Corpuscular Volume 93 um3 80-94 Mean Corpuscular Hemoglob 33 pg High 27-31 Mean Corpuscular HGB Cone 35 g/dL 32-36 Redcell Distribution WDTH 12 % 10.5-15 Platelet Count 231 CUMM 150-450 Mean Platelet Volume 8.5 um3 7.4-10.4 Gran % 74.8 % 38-83 Lymph % 16.3 % Low 25-47 Mononuclear % 3.1 % 1-9 Eosinophil % 5.7 % 0-6 Basophil % 0.1 % 0-2 Abs Lymphs 1.4 1.0-4.8 Abs Mononuclear 0.3 0-0.8 Absolute Neutrophil Count 6.4 1.5-7.7 Abs Eosinophils 0.5 0-0.6 Abs Basophils 0 0-0.2 66 Vitamin B12 And 06/01/2011 [facility] Vitamin B12 449 pg/mL 180-[address] [place] [address] [phone] Folic Acid 17.6 NG/ML High 2-16 Laboratory test 06/01/2011 [facility] Ferritin 69 NG/ML 24- [address] [place] [address] [phone] Iron & Iron Binding 06/01/2011 [facility] Iron Total 69 g/dL 45-[address] [place] [address] [phone] Unsaturated Iron Binding 251 g/dL Total Iron Binding Capacity 320 g/dL 250-450 % Iron Saturation 22 % 15-55 Vitamin D, 25 06/01/2011 [facility] 25-Hydroxy Vitamin <4.0 ng/ mL () Hydroxy [address] [facility] [address] [place] [address] [phone] 25-Hydroxy Vitamin D3 33 ng/mL () 25-Hydroxy Vitamin D Total 33 ng/mL () 67 Laboratory test 04/10/2011 [facility] PSA,Diagnostic 1.34 NG/ML 0-4 68 finding [address] [place] [address] [phone] Iron & Iron 04/10/2011 [facility] Iron Total 121 g/dL 45- 182 Binding Capacity [address] [place] [address] [phone] Unsaturated Iron Binding 238 g/dL Total Iron Binding Capacity 359 g/dL 250-450 % Iron Saturation 34 % 15-55 Lipid Profile 04/10/2011 [facility] Triglyceride 47 mg/dL 40- 200 (Trig/Chol/HDL) [address] [place] [address] [phone] Cholesterol 181 mg/dL Less Than 200 69 High Density Lipoprotein 68 mg/dL High 40-60 70 Cholesterol/HDL Ratio 2.66 AVERAGE 1-4.97 Low Density Lipoprotein 104 mg/dL High Less Than 100 71 Comp Metabolic Panel 04/10/2011 [facility] Sodium 138 mmol/L 135-145 [address] [place] [address] [phone] Potassium 3.9 mmol/L 3.5-5.0 Chloride 103 mmol/L 101-111 Co2 (Carbon Dioxide) 31.0 mmol/L 22-32 Anion Gap 4.0 mmol/L 2-11 72 Glucose 96 mg/dL 70-100 BUN 12 mg/dL 6-24 Creatinine 0.80 mg/dL 0.50-1.40 One Over Creatinine 1.20 BUN/Creatinine Ratio 15.0 8-20 Calcium 9.3 mg/dL 8.1-9.9 Total Protein 6.1 GM/DL Low 6.2-8.1 Albumin 4.2 GM/DL 3.2-5.2 Globulin 1.9 GM/DL Low 2-4 Albumin/Globulin Ratio 2.2 1-3 Bilirubin Total 0.9 mg/dL 0.4-1.5 73 Alkaline Phosphatase 46 U/L 39-117 Alt (SGPT) 31 U/L 17-63 Ast (Sgot) 24 U/L 12-42 eGFR Non- 97.6 > 60 eGFR 125.6 > 60 74 CBC No Diff 04/10/2011 [facility] White Blood Count 6.8 CUMM 4.8-10.8 [address] [place] [address] [phone] Red Cell Count 4.00 CUMM Low 4.6-6.2 Hemoglobin 13.0 g/dL Low 14.0-18.0 Hematocrit 39 % Low 42-52 Mean Corpuscular Volume 98 um3 High 80-94 Mean Corpuscular Hemoglob 32 pg High 27-31 Mean Corpuscular HGB Cone 33 g/dL 32-36 Redcell Distribution WDTH 13 % 10.5-15 Platelet Count 226 CUMM 150-450 Mean Platelet Volume 8.4 um3 7.4-10.4 PSA Free And Total 07/05/2010 [facility] Total PSA 1.2 ng/mL 0.0-4.1 [address] [place] [address] [phone] Free PSA 0.2 ng/mL () Free PSA/PSA Ratio . () 75 Laboratory test 05/02/2010 [facility] PSA,Diagnostic 2.46 NG/ML 0-4 76 finding [address] [place] [address] [phone] Vitamin D, 25 03/20/2010 [facility] 25-Hydroxy Vitamin <4.0 ng/ mL () Hydroxy [address] [address] [phone] 25-Hydroxy Vitamin D3 42 ng/mL () 25-Hydroxy Vitamin D Total 42 ng/mL () 77 Laboratory test 03/20/2010 [facility] PSA,Diagnostic 2.27 NG/ML 0-4 78 finding [address] [place] [address] [phone] Lipid Profile 03/20/2010 [facility] Triglyceride 72 mg/dL 40- 200 (Trig/Chol/HDL) [address] [place] [address] [phone] Cholesterol 164 mg/dL Less Than 200 79 High Density Lipoprotein 70 mg/dL High 40-60 80 Cholesterol/HDL Ratio 2.34 AVERAGE 1-4.97 Low Density Lipoprotein 80 mg/dL Less Than 100 81 Comp Metabolic Panel 03/20/2010 [facility] Sodium 139 mmol/L 135-[address] [place] [address] [phone] Potassium 4.3 mmol/L 3.5-5.0 Chloride 103 mmol/L 101-111 Co2 (Carbon Dioxide) 28.0 mmol/L 22-32 Anion Gap 8.0 mmol/L 2-11 82 Glucose 105 mg/dL High 70-100 83 BUN 11 mg/dL 6-24 Creatinine 0.80 mg/dL 0.50-1.40 One Over Creatinine 1.20 BUN/Creatinine Ratio 13.8 8-20 Calcium 9.3 mg/dL 8.1-9.9 84 Total Protein 5.9 GM/DL Low 6.2-8.1 Albumin 4.2 GM/DL 3.2-5.2 Globulin 1.7 GM/DL Low 2-4 Albumin/Globulin Ratio 2.5 1-3 Bilirubin Total 0.9 mg/dL 0.4-1.5 85 Alkaline Phosphatase 48 U/L 39-117 Alt (SGPT) 18 U/L 17-63 Ast (Sgot) 20 U/L 12-42 eGFR Non- 104.1 > 60 eGFR 126.0 > 60 86 CBC With 03/20/2010 [facility] White Blood 6.7 CUMM 4.8-10.8 Electronic Diff [address] [place] [address] [phone] Red Cell Count 4.41 CUMM Low 4.6-6.2 Hemoglobin 15.1 g/dL 14.0-18.0 Hematocrit 44 % 42-52 Mean Corpuscular Volume 99 um3 High 80-94 Mean Corpuscular Hemoglob 34 pg High 27-31 Mean Corpuscular HGB Cone 35 g/dL 32-36 Redcell Distribution WDTH 13 % 10.5-15 Platelet Count 209 CUMM 150-450 Mean Platelet Volume 8.2 um3 7.4-10.4 Gran % 57.9 % 38-83 Lymph % 26.3 % 25-47 Mononuclear % 7.9 % 1-9 Eosinophil % 7.2 % High 0-6 Basophil % 0.7 % 0-2 Abs Lymphs 1.8 1.0-4.8 Abs Mononuclear 0.5 0-0.8 Absolute Neutrophil Count 3.9 1.5-7.7 Abs Eosinophils 0.5 0-0.6 Abs Basophils 0 0-0.2 1 FASTING 10 HOUR 2 Desirable: <150 Borderline High: 150-199 High: 200-499 Very High: >500 3 Desirable: <200 Borderline High: 200-239 High: >239 4 Low: <40 Desirable: 40-60 High: >60 5 Desirable: <100 Near Optimal: 100-129 Borderline High: 130-159 High: 160-189 Very High: >189 6 Because ethnic data is not always readily available, this report includes an eGFR for both -Americans and non- Americans. The National Kidney Disease Education Program (NKDEP) does not endorse the use of the MDRD equation for patients that are not between the ages of 18 and 70, are , have extremes of body size, muscle mass, or nutritional status, or are non- or non-. According to the National Kidney Foundation, irrespective of diagnosis, the stage of the disease is based on the level of kidney function: Stage Description GFR(mL/min/1.73 m(2)) 1 Kidney damage with normal or decreased GFR 90 2 Kidney damage with mild decrease in GFR 60-89 3 Moderate decrease in GFR 30-59 4 Severe decrease in GFR 15-29 5 Kidney failure <15 (or dialysis) 7 FASTING 10 HOUR 8 Result TnIDx:0.05 Called to [id number] at: 20:50:34 by:[id number] Read back by: [id number] [facility] Severe Sepsis and Septic Shock Management Bundle Measure requires all lactic acids initially measuring >2.0 mmol/L be repeated. 10 >100 to <200 pg/mL: likely compensated congestive heart failure (CHF) 200 to 400 pg/mL: likely moderate CHF >400 pg/mL: likely moderate to severe CHF 11 Because ethnic data is not always readily available, this report includes an eGFR for both -Americans and non- Americans. The National Kidney Disease Education Program (NKDEP) does not endorse the use of the MDRD equation for patients that are not between the ages of 18 and 70, are , have extremes of body size, muscle mass, or nutritional status, or are non- or non-. According to the National Kidney Foundation, irrespective of diagnosis, the stage of the disease is based on the level of kidney function: Stage Description GFR(mL/min/1.73 m(2)) 1 Kidney damage with normal or decreased GFR 90 2 Kidney damage with mild decrease in GFR 60-89 3 Moderate decrease in GFR 30-59 4 Severe decrease in GFR 15-29 5 Kidney failure <15 (or dialysis) 12 Result TnIDx:0.04 Called to [id number] at: 18:34:05 by:[id number] Read back by: [email or web address] Please note: The following may produce a false positive D Dimer test: - Rheumatoid factor greater than 60 IU/ml - Plasma hemoglobin greater than 0.05 gm/dl - Bilirubin greater than 50 mg/dl - Lipids greater than 1000 mg/dl - FDP greater than 20 ug/ml 14 Serum levels of PSA measured using the [employer] DXI Hybritech immunoassay should not be interpreted as absolute evidence of the presence or absence of disease. The PSA value should be used in conjunction with other pertinent clinical diagnostic procedures. The values obtained with different assay methods or kits cannot be used interchangeably. 15 Desirable: <150 Borderline High: 150-199 High: 200-499 Very High: >500 16 Desirable: <200 Borderline High: 200-239 High: >239 17 Low: <40 Desirable: 40-60 High: >60 18 Desirable: <100 Near Optimal: 100-129 Borderline High: 130-159 High: 160-189 Very High: >189 19 Because ethnic data is not always readily available, this report includes an eGFR for both -Americans and non- Americans. The National Kidney Disease Education Program (NKDEP) does not endorse the use of the MDRD equation for patients that are not between the ages of 18 and 70, are , have extremes of body size, muscle mass, or nutritional status, or are non- or non-. According to the National Kidney Foundation, irrespective of diagnosis, the stage of the disease is based on the level of kidney function: Stage Description GFR(mL/min/1.73 m(2)) 1 Kidney damage with normal or decreased GFR 90 2 Kidney damage with mild decrease in GFR 60-89 3 Moderate decrease in GFR 30-59 4 Severe decrease in GFR 15-29 5 Kidney failure <15 (or dialysis) 20 [id number] 21 SEE RESULT BELOW Name: DOHERTYFANTA : [address]: Mac Mcclelland MD Acct: [id number] Unit: [id number] AGE: 66 Location: [facility] Re09/03/16 SEX: M Status: REG REF SPEC: [id number] ROGERIO: 09/03/16- SUBM DR: Mac Mcclelland MD REQ: [id number] RECD: 09/03/16 STATUS: ANDI FLANNERY DR: Suki Pandya MD _ ORDERED: LEVEL IV COMMENTS: [id number] FINAL DIAGNOSIS Colon, at 30 cm, biopsy: -- Hyperplastic polyp. 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 polyp on tip of inverted tic, biopsied at 30 cm; 5-10 years GROSS DESCRIPTION The specimen is received in formalin labeled, Biopsy Nodule at 30 cm Colon, and consists of a 0.3 x 0.2 x 0.2 cm barfield-pink irregular soft tissue fragment, which is submitted entirely in one cassette. Signed (signature on file) Cyndee Childress MD 1125 END OF REPORT * ML=Testing performed at Main Lab DEPARTMENT OF PATHOLOGY, [address] [place] [address] Jeffery Blue M.D. Director [facility] # [id number] 22 Desirable <150 Borderline high 150-199 High 200-499 Very High >500 23 Desirable <200 Borderline high 200-239 High >239 24 Low <40 Desirable: 40-60 High: >60 25 Desirable: <100 mg/dL Near Optimal: 100-129 mg/dL Borderline High: 130-159 mg/dL High: 160-189 mg/dL Very High: >189 mg/dL 26 Because ethnic data is not always readily available, this report includes an eGFR for both -Americans and non- Americans. The National Kidney Disease Education Program (NKDEP) does not endorse the use of the MDRD equation for patients that are not between the ages of 18 and 70, are , have extremes of body size, muscle mass, or nutritional status, or are non- or non-. According to the National Kidney Foundation, irrespective of diagnosis, the stage of the disease is based on the level of kidney function: Stage Description GFR(mL/min/1.73 m(2)) 1 Kidney damage with normal or decreased GFR 90 2 Kidney damage with mild decrease in GFR 60-89 3 Moderate decrease in GFR 30-59 4 Severe decrease in GFR 15-29 5 Kidney failure <15 (or dialysis) 27 Therapeutic target for the treatment of diabetes Mellitus patients is <7% HBA1C, and in selective patients <6.0%.Please refer to [place] [employer] Diabetic care guidelines for further information. 28 Because ethnic data is not always readily available, this report includes an eGFR for both -Americans and non- Americans. The National Kidney Disease Education Program (NKDEP) does not endorse the use of the MDRD equation for patients that are not between the ages of 18 and 70, are , have extremes of body size, muscle mass, or nutritional status, or are non- or non-. According to the National Kidney Foundation, irrespective of diagnosis, the stage of the disease is based on the level of kidney function: Stage Description GFR(mL/min/1.73 m(2)) 1 Kidney damage with normal or decreased GFR 90 2 Kidney damage with mild decrease in GFR 60-89 3 Moderate decrease in GFR 30-59 4 Severe decrease in GFR 15-29 5 Kidney failure <15 (or dialysis) 29 Serum levels of PSA measured using the [employer] DXI Hybritech immunoassay should not be interpreted as absolute evidence of the presence or absence of disease. The PSA value should be used in conjunction with other pertinent clinical diagnostic procedures. The values obtained with different assay methods or kits cannot be used interchangeably. 30 Desirable <150 Borderline high 150-199 High 200-499 Very High >500 31 Desirable <200 Borderline high 200-239 High >239 32 Low <40 Desirable: 40-60 High: >60 33 Desirable: <100 mg/dL Near Optimal: 100-129 mg/dL Borderline High: 130-159 mg/dL High: 160-189 mg/dL Very High: >189 mg/dL 34 Because ethnic data is not always readily available, this report includes an eGFR for both -Americans and non- Americans. The National Kidney Disease Education Program (NKDEP) does not endorse the use of the MDRD equation for patients that are not between the ages of 18 and 70, are , have extremes of body size, muscle mass, or nutritional status, or are non- or non-. According to the National Kidney Foundation, irrespective of diagnosis, the stage of the disease is based on the level of kidney function: Stage Description GFR(mL/min/1.73 m(2)) 1 Kidney damage with normal or decreased GFR 90 2 Kidney damage with mild decrease in GFR 60-89 3 Moderate decrease in GFR 30-59 4 Severe decrease in GFR 15-29 5 Kidney failure <15 (or dialysis) 35 Because ethnic data is not always readily available, this report includes an eGFR for both -Americans and non- Americans. The National Kidney Disease Education Program (NKDEP) does not endorse the use of the MDRD equation for patients that are not between the ages of 18 and 70, are , have extremes of body size, muscle mass, or nutritional status, or are non- or non-. According to the National Kidney Foundation, irrespective of diagnosis, the stage of the disease is based on the level of kidney function: Stage Description GFR(mL/min/1.73 m(2)) 1 Kidney damage with normal or decreased GFR 90 2 Kidney damage with mild decrease in GFR 60-89 3 Moderate decrease in GFR 30-59 4 Severe decrease in GFR 15-29 5 Kidney failure <15 (or dialysis) 36 Serum levels of PSA measured using the [employer] DXI Hybritech immunoassay should not be interpreted as absolute evidence of the presence or absence of disease. The PSA value should be used in conjunction with other pertinent clinical diagnostic procedures. The values obtained with different assay methods or kits cannot be used interchangeably. 37 Therapeutic target for the treatment of diabetes Mellitus patients is <7% HBA1C, and in selective patients <6.0%.Please refer to [place] [employer] Association Diabetic care guidelines for further information. 38 Interpretation: 51-80 ng/mL (increased risk of hypercalciuria) REFERENCE VALUE 25-HYDROXY D TOTAL (D2+D3) Optimum levels in the healthy population are 20-50, patients with bone disease may benefit from higher levels within this range. Test Performed by: [facility] [place] [address] Tanyard Worker: Vikas Heller II, M.D., Ph.D. 39 Because ethnic data is not always readily available, this report includes an eGFR for both -Americans and non- Americans. The National Kidney Disease Education Program (NKDEP) does not endorse the use of the MDRD equation for patients that are not between the ages of 18 and 70, are , have extremes of body size, muscle mass, or nutritional status, or are non- or non-. According to the National Kidney Foundation, irrespective of diagnosis, the stage of the disease is based on the level of kidney function: Stage Description GFR(mL/min/1.73 m(2)) 1 Kidney damage with normal or decreased GFR 90 2 Kidney damage with mild decrease in GFR 60-89 3 Moderate decrease in GFR 30-59 4 Severe decrease in GFR 15-29 5 Kidney failure <15 (or dialysis) 40 Desirable <150 Borderline high 150-199 High 200-499 Very High >500 41 Desirable <200 Borderline high 200-239 High >239 42 Low <40 Desirable: 40-60 High: >60 43 Desirable <100 Near Optimal 100-129 Borderline high 130-159 High 160-189 Very High >189 44 HDL Interpretation: Undesirable: High Risk: Less than 40 mg/dL Desirable: Low Risk: Greater than 60 mg/dL 45 LDL Interpretation: Low Risk Optimal Level: LDL Less than 100 mg/dL Near or Above Optimal: LDL 100-129 mg/dL Borderline High Risk: LDL 130-159 mg/dL High Risk: LDL 160-189 mg/dL Very High Risk: LDL Greater than 189 mg/dL 46 Because ethnic data is not always readily available, this report includes an eGFR for both -Americans and non- Americans. The National Kidney Disease Education Program (NKDEP) does not endorse the use of the MDRD equation for patients that are not between the ages of 18 and 70, are , have extremes of body size, muscle mass, or nutritional status, or are non- or non-. According to the National Kidney Foundation, irrespective of diagnosis, the stage of the disease is based on the level of kidney function: Stage Description GFR(mL/min/1.73 m(2)) 1 Kidney damage with normal or decreased GFR 90 2 Kidney damage with mild decrease in GFR 60-89 3 Moderate decrease in GFR 30-59 4 Severe decrease in GFR 15-29 5 Kidney failure <15 (or dialysis) 47 Therapeutic target for the treatment of diabetes Mellitus patients is <7% HBA1C, and in selective patients <6.0%.Please refer to [place] Diabetes Association Diabetic care guidelines for further information. 48 CBC and smear reviewed. Inverted PMN/lymph ratio noted. No blasts seen. Reviewed by Cyndee Childress MD 49 Serum levels of PSA measured using the [employer] DXI Hybritech immunoassay should not be interpreted as absolute evidence of the presence or absence of disease. The PSA value should be used in conjunction with other pertinent clinical diagnostic procedures. The values obtained with different assay methods or kits cannot be used interchangeably. 50 * SERUM LEVELS OF PSA MEASURED USING THE JORGE FABIOLA ACCESS HYBRITECH IMMUNOASSAY SHOULD NOT BE INTERPRETED ABSOLUTE EVIDENCE OF THE PRESENCE OR ABSENCE OF DISEASE. THE PSA VALUE SHOULD BE USED IN CONJUNCTION WITH OTHER PERTINENT CLINICAL DIAGNOSTIC PROCEDURES. The values obtained with different assay methods or kits cannot be used interchangeably. 51 THERAPEUTIC TARGET FOR THE TREATMENT OF DIABETES MELLITUS PATIENTS IS <7% HBA1C, AND IN SELECTIVE PATIENTS <6.0%. PLEASE REFER TO [place] [employer] DIABETIC CARE GUIDELINES FOR FURTHER INFORMATION. 52 CHOLESTEROL INTERPRETATION: Desirable: Less than 200 MG/DL Borderline-High Risk: 200-239 MG/DL High-Risk: 240 MG/DL and over 53 HDL INTERPRETATION: Undesirable: High Risk: Less than 40 MG/DL Desirable: Low Risk: Greater than 60 MG/DL 54 LDL INTERPRETATION: Low Risk Optimal Level: LDL Less than 100 MG/DL Near or Above Optimal: LDL 100-129 MG/DL Borderline High Risk: LDL 130-159 MG/DL High Risk: LDL 160-189 MG/DL Very High Risk: LDL Greater than 189 MG/DL 55 Anion gap measurement may be of limited value in the presence of any alkalosis, especially in a combined acid base disorder. . 56 A metabolite of Naproxen, O-desmethylnaproxen, has been shown to interfere with the Jendrassik-Jocelyn method for measuring total bilirubin. Samples from patients who have taken Naproxen have shown spurious elevation in total bilirubin levels. 57 Because ethnic data is not always readily available, this report includes an eGFR for both -Americans and non- Americans. The National Kidney Disease Education Program (NKDEP) does not endorse the use of the MDRD equation for patients that are not between the ages of 18 and 70, are , have extremes of body size, muscle mass, or nutritional status, or are non- or non-. According to the National Kidney Foundation, irrespective of diagnosis, the stage of the disease is based on the level of kidney function: Stage Description GFR(mL/min/1.73 m(2)) 1 Kidney damage with normal or decreased GFR 90 2 Kidney damage with mild decrease in GFR 60-89 3 Moderate decrease in GFR 30-59 4 Severe decrease in GFR 15-29 5 Kidney failure <15 (or dialysis) 58 Anion gap measurement may be of limited value in the presence of any alkalosis, especially in a combined acid base disorder. . 59 A metabolite of Naproxen, O-desmethylnaproxen, has been shown to interfere with the Jendrassik-Jocelyn method for measuring total bilirubin. Samples from patients who have taken Naproxen have shown spurious elevation in total bilirubin levels. 60 Because ethnic data is not always readily available, this report includes an eGFR for both -Americans and non- Americans. The National Kidney Disease Education Program (NKDEP) does not endorse the use of the MDRD equation for patients that are not between the ages of 18 and 70, are , have extremes of body size, muscle mass, or nutritional status, or are non- or non-. According to the National Kidney Foundation, irrespective of diagnosis, the stage of the disease is based on the level of kidney function: Stage Description GFR(mL/min/1.73 m(2)) 1 Kidney damage with normal or decreased GFR 90 2 Kidney damage with mild decrease in GFR 60-89 3 Moderate decrease in GFR 30-59 4 Severe decrease in GFR 15-29 5 Kidney failure <15 (or dialysis) 61 TOXIC LEVELS: GREATER THAN 150 MCG/ML @ 4HR POST INGEST GREATER THAN 50 MCG/ML @ 12HR POST INGEST The detection limit for ACETAMINOPHEN is 10.0 mcg/ml . Values less than 10.0 mcg/ml cannot be accurately measured. . 62 The detection limit for ETHANOL is 10.0 mg/dl . Values less than 10.0 mg/dl cannot be accurately measured. . 63 The detection limit for SALICYLATE is 4.0 mg/dl. Values less than 4.0 mg/dl cannot be accurately measured. . 64 THE URINE SPECIMEN WAS TESTED AT THE LISTED CUTOFFS: DRUG CLASS TEST LEVEL (NG/ML) AMPHETAMINES 300 BARBITUATES 200 BENZODIAZEPINE METABOLITES 200 COCAINE METABOLITES 300 CANNABINOIDS 25 OPIATES 200 PCP 25 THIS IS A SCREENING PROCEDURE. POSITIVE RESULTS ARE NOT CONFIRMED. SPECIMEN WAS RECEIVED WITHOUT CHAIN OF CUSTODY. RESULTS SHOULD BE USED FOR MEDICAL PURPOSES ONLY. . 65 ---- RUN DATE: 08/15/11 [facility] NMI LIVE PAGE 1 RUN TIME: 1438 Specimen Inquiry RUN USER: INTERFACE -- Name: FATNA DOHERTY Status: REG REF Re08/13/11 Age/Sex: 61/M Unit#: [id number] Location: [address] [place] [address]. : 48 -- Specimen: [id number] SOUT Spec Date: 08/13/[address]: Mac wagner MD Spec Type: SURGICAL P Received: 08/14/11-1011 Copies to: Suki mix MD SPECIMEN 1) THICKENED FOLD AT 40 CM. BIOPSIES 2) CECAL POLYP HISTORY POST-OP DIAGNOSIS: To cecum - polyp by snare CLINICAL INFORMATION: History of polyps GROSS DESCRIPTION 1) The specimen is received in formalin labelled Fanta Doherty, Thickened Fold at 40 cm. Biopsies, and consists of a barfield soft tissue fragment measuring 0.4 x 0.3 x 0.2 cm. Submitted entirely, one cassette. 2) The specimen is received in formalin labelled Fanta Doherty, Cecal Polyp, and consists of a barfield polypoid fragment measuring 0.3 x 0.2 x 0.2 cm. Submitted entirely, one cassette. DIAGNOSIS 1) Colon, thickened fold at 40 cm., biopsy: Hyperplastic polyp. 2) Colon, cecum, biopsy: A. Tubular adenoma. B. No high grade dysplasia or malignancy. Signed Electronically by: JEFFERY BLUE MD 08/15/11 1437 -- -- DEPARTMENT OF PATHOLOGY, [address] [place] [address] [facility] Permit #[id number] Jeffery Blue M.D. Director Gretel Reyes M.D. Farmworker Bulbs Dir lupe -- 66 Lymphopenia % 67 -- REFERENCE VALUE -- 25-HYDROXY D TOTAL (D2+D3) Optimum levels in the normal population are 25-80 Test Performed by: [facility] Dpt of Lab Med and Pathology [address] [place], [place] [id number] Tanyard Worker: Tyrese Coffey III, M.D. 68 * SERUM LEVELS OF PSA MEASURED USING THE JORGE FABIOLA ACCESS HYBRITECH IMMUNOASSAY SHOULD NOT BE INTERPRETED ABSOLUTE EVIDENCE OF THE PRESENCE OR ABSENCE OF DISEASE. THE PSA VALUE SHOULD BE USED IN CONJUNCTION WITH OTHER PERTINENT CLINICAL DIAGNOSTIC PROCEDURES. 69 CHOLESTEROL INTERPRETATION: Desirable: Less than 200 MG/DL Borderline-High Risk: 200-239 MG/DL High-Risk: 240 MG/DL and over 70 HDL INTERPRETATION: Undesirable: High Risk: Less than 40 MG/DL Desirable: Low Risk: Greater than 60 MG/DL 71 LDL INTERPRETATION: Low Risk Optimal Level: LDL Less than 100 MG/DL Near or Above Optimal: LDL 100-129 MG/DL Borderline High Risk: LDL 130-159 MG/DL High Risk: LDL 160-189 MG/DL Very High Risk: LDL Greater than 189 MG/DL 72 Anion gap measurement may be of limited value in the presence of any alkalosis, especially in a combined acid base disorder. . 73 A metabolite of Naproxen, O-desmethylnaproxen, has been shown to interfere with the Jendrassik-Jocelyn method for measuring total bilirubin. Samples from patients who have taken Naproxen have shown spurious elevation in total bilirubin levels. 74 Because ethnic data is not always readily available, this report includes an eGFR for both -Americans and non- Americans. The National Kidney Disease Education Program (NKDEP) does not endorse the use of the MDRD equation for patients that are not between the ages of 18 and 70, are , have extremes of body size, muscle mass, or nutritional status, or are non- or non-. According to the National Kidney Foundation, irrespective of diagnosis, the stage of the disease is based on the level of kidney function: Stage Description GFR(mL/min/1.73 m(2)) 1 Kidney damage with normal or decreased GFR 90 2 Kidney damage with mild decrease in GFR 60-89 3 Moderate decrease in GFR 30-59 4 Severe decrease in GFR 15-29 5 Kidney failure <15 (or dialysis) 75 Ratio not calculated because clinical usefulness is not defined except in range of total PSA 2-10 ng/mL. The testing method is an immunoenzymatic assay manufactured by [employer] and performed on the [employer] DXI 800. Values obtained with different assay methods or kits may be different and cannot be used interchangeably. Test results cannot be interpreted as absolute evidence for the presence or absence of malignant disease. Test Performed by: [facility] Dpt of Lab Med and Pathology [address] [place] [address] Tanyard Worker: Tyrese Coffey III, M.D. 76 * SERUM LEVELS OF PSA MEASURED USING THE JORGE [employer] ACCESS HYBRITECH IMMUNOASSAY SHOULD NOT BE INTERPRETED ABSOLUTE EVIDENCE OF THE PRESENCE OR ABSENCE OF DISEASE. THE PSA VALUE SHOULD BE USED IN CONJUNCTION WITH OTHER PERTINENT CLINICAL DIAGNOSTIC PROCEDURES. 77 -- REFERENCE VALUE -- 25-HYDROXY D TOTAL (D2+D3) Optimum levels in the normal population are 25-80 Test Performed by: [facility] Dpt of Lab Med and Pathology [address] [place] [address] Tanyard Worker: Tyrese Coffey III, M.D. 78 * SERUM LEVELS OF PSA MEASURED USING THE JORGE [employer] ACCESS HYBRITECH IMMUNOASSAY SHOULD NOT BE INTERPRETED ABSOLUTE EVIDENCE OF THE PRESENCE OR ABSENCE OF DISEASE. THE PSA VALUE SHOULD BE USED IN CONJUNCTION WITH OTHER PERTINENT CLINICAL DIAGNOSTIC PROCEDURES. 79 CHOLESTEROL INTERPRETATION: Desirable: Less than 200 MG/DL Borderline-High Risk: 200-239 MG/DL High-Risk: 240 MG/DL and over 80 HDL INTERPRETATION: Undesirable: High Risk: Less than 40 MG/DL Desirable: Low Risk: Greater than 60 MG/DL 81 LDL INTERPRETATION: Low Risk Optimal Level: LDL Less than 100 MG/DL Near or Above Optimal: LDL 100-129 MG/DL Borderline High Risk: LDL 130-159 MG/DL High Risk: LDL 160-189 MG/DL Very High Risk: LDL Greater than 189 MG/DL 82 Anion gap measurement may be of limited value in the presence of any alkalosis, especially in a combined acid base disorder. . 83 Note change in reference range as of 05/26/08. The change was based on recommendations from the [place] Diabetes Association. 84 Please note change in reference range effective 08 . 85 A metabolite of Naproxen, O-desmethylnaproxen, has been shown to interfere with the Jendrassik-[place] method for measuring total bilirubin. Samples from patients who have taken Naproxen have shown spurious elevation in total bilirubin levels. 86 Because ethnic data is not always readily available, this report includes an eGFR for both -Americans and non- Americans. The National Kidney Disease Education Program (NKDEP) does not endorse the use of the MDRD equation for patients that are not between the ages of 18 and 70, are , have extremes of body size, muscle mass, or nutritional status, or are non- or non-. According to the National Kidney Foundation, irrespective of diagnosis, the stage of the disease is based on the level of kidney function: Stage Description GFR(mL/min/1.73 m(2)) 1 Kidney damage with normal or decreased GFR 90 2 Kidney damage with mild decrease in GFR 60-89 3 Moderate decrease in GFR 30-59 4 Severe decrease in GFR 15-29 5 Kidney failure <15 (or dialysis) Procedures Date Code Description Status 10/16/2018 97423 EKG Tracing & Interpretation Completed 09/22/2018 95005 Moderate Sedation Services; Same Phys Intl 15 Mins; PT Completed >=5 Years 09/22/2018 19025 Color Flow Doppler/Interp & Reprt Completed 09/22/2018 15684 Pulse Wave/Continuous-Interp.RPT Completed 09/22/2018 32197 Echocardiography, Transesophageal, Real Time W/Image Completed 2D W/W/O M-M 09/22/2018 14328 Cardioversion Completed 08/18/2018 09223 EKG Tracing & Interpretation Completed 07/26/2018 67572 ECHO Transthorasic Realtime 2D W Doppler & Color Flow Completed Hosp 07/24/2018 21515 EKG Tracing & Interpretation Completed 08/27/2017 [id number] Bone Mineral Density Test Completed 10/03/2016 68039 Pulmonary Function><Bronchodil Completed 10/03/2016 52405 Pulmonary Stress Test Simple Completed 10/03/2016 74437 Plethysmography Determination Lung Volumes & Per Completed Airway Resist 10/03/2016 12646 Diffusing Capacity Completed 09/03/2016 [id number] Colonoscopy Completed 01/22/2016 67086 ECHO Transthoracic, Real-Time 2D With Doppler And Completed Color Flow 06/16/2014 [id number] Bone Mineral Density Test Completed 07/20/2013 848448131 Diabetic Retinal Eye Exam Completed 06/04/2013 56757 EKG Tracing & Interpretation Completed 08/13/2011 [id number] Colonoscopy Completed 06/11/2011 [id number] Bone Mineral Density Test Completed 05/31/2011 24563 EKG Tracing & Interpretation Completed 03/19/2010 76278 EKG Tracing & Interpretation Completed 03/19/2010 22010 Spirometry Incl Graphic Record, Timed Expiratory Flow Completed Rate 03/17/2009 59994 EKG Tracing & Interpretation Completed 12/07/2008 85444 Holter Monitor Review (24 hr)dr review & interp only Completed 12/05/2008 72309 EKG Tracing & Interpretation Completed 04/12/2008 [id number] Colonoscopy Completed 02/18/2008 486342431 Bone Mineral Density Test Completed 02/15/2008 58162 EKG Tracing & Interpretation Completed 02/15/2008 45197 EKG Tracing & Interpretation Completed Encounters Type Date Location Provider Dx Diagnosis Office Visit 09/09/2018 Pulmonology And Stephanie Garza J44.9 Chronic obstructive 9:00a Sleep Services Of pulmonary disease, Interactive Marketing Strategist unspecified Z87.891 Personal history of nicotine dependence Z12.2 Encntr screen for malignant neoplasm of respiratory organs Office Visit 08/18/2018 2:00p [facility] Remy Bullard I48.91 Unspecified atrial Of [facility] [place] Shalonda Stewart fibrillation I42.9 Cardiomyopathy, unspecified I51.3 Intracardiac thrombosis, not elsewhere classified Office Visit 08/06/2018 2:40p [facility] Internal Suki I48.91 Unspecified atrial Medicine - Shalonda Pandya fibrillation [place] R63.4 Abnormal weight loss Office Visit 07/30/2018 [facility] I48.0 Paroxysmal atrial 10:51a maddison Hilario M.D. fibrillation Hospitalists I50.20 Unspecified systolic (congestive) heart failure I51.3 Intracardiac thrombosis, not elsewhere classified F32.9 Major depressive disorder, single episode, unspecified J44.9 Chronic obstructive pulmonary disease, unspecified Office Visit 07/29/2018 [place] Farzana Lauren, I42.9 Cardiomyopathy, 11:59a [place] unspecified Interactive Marketing Strategist I48.91 Unspecified atrial fibrillation Office Visit 07/29/2018 [facility] I51.3 Intracardiac 10:51a Assmaddison barbosa M.D. thrombosis, not Hospitalists elsewhere classified I48.0 Paroxysmal atrial fibrillation I50.9 Heart failure, unspecified J44.9 Chronic obstructive pulmonary disease, unspecified F32.9 Major depressive disorder, single episode, unspecified Office Visit 07/28/2018 [facility] I51.3 Intracardiac 10:50a maddison Hilario M.D. thrombosis, not Hospitalists elsewhere classified I48.0 Paroxysmal atrial fibrillation I50.9 Heart failure, unspecified J44.9 Chronic obstructive pulmonary disease, unspecified F32.9 Major depressive disorder, single episode, unspecified Office Visit 07/28/2018 [place] Remy Bullard I42.9 Cardiomyopathy, 3:47p Cardiology Of Shalonda Stewart unspecified Interactive Marketing Strategist I24.0 Acute coronary thrombosis not resulting in myocardial infrc I50.9 Heart failure, unspecified Office Visit 07/27/2018 [facility] Jeanmarie Calderon I51.3 Intracardiac 10:50a Assocmaddison MD thrombosis, not Hospitalists elsewhere classified I48.0 Paroxysmal atrial fibrillation I50.9 Heart failure, unspecified K76.9 Liver disease, unspecified J44.9 Chronic obstructive pulmonary disease, unspecified F32.9 Major depressive disorder, single episode, unspecified Office Visit 07/27/2018 Surgical Fernie S. K82.8 Other specified 7:00a Associates Of MD Joya diseases of [facility] gallbladder Office Visit 07/27/2018 Landon Bullard I48.91 Unspecified atrial 8:52a Cardiology Of Shalonda Stewart fibrillation [facility] I50.9 Heart failure, unspecified Office Visit 07/26/2018 [facility] Jeanmarie Calderon I51.3 Intracardiac 10:50a Assoc,maddison Mendoza MD thrombosis, not Hospitalists elsewhere classified I48.0 Paroxysmal atrial fibrillation I50.9 Heart failure, unspecified K76.1 Chronic passive congestion of liver J44.9 Chronic obstructive pulmonary disease, unspecified F32.9 Major depressive disorder, single episode, unspecified Office Visit 07/25/2018 [facility] Jeanmarie Calderon I48.0 Paroxysmal atrial 10:49a Assoc,maddison Mendoza MD fibrillation Hospitalists I50.9 Heart failure, unspecified R94.5 Abnormal results of liver function studies J44.9 Chronic obstructive pulmonary disease, unspecified F32.9 Major depressive disorder, single episode, unspecified Office Visit 07/24/2018 10:49a [facility] Jannet I48.0 Paroxysmal atrial Assoc,maddison Marr DO fibrillation Hospitalists D68.9 Coagulation defect, unspecified J44.1 Chronic obstructive pulmonary disease w (acute) exacerbation E83.42 Hypomagnesemia F32.9 Major depressive disorder, single episode, unspecified Office Visit 07/24/2018 3:30p [facility] Internal Maria Del Rosario Montes De Oca, I48.0 Paroxysmal atrial Medicine - fibrillation [place] F17.210 Nicotine dependence, cigarettes, uncomplicated R18.8 Other ascites Office Visit 01/05/2018 1:20p [facility] Amita Bullard Z71.9 Counseling, Infectious Shalonda Carrillo unspecified Diseases Z23 Encounter for immunization Office Visit 09/09/2017 Pulmonology And Stephanie Garza J44.9 Chronic 10:00a Sleep Services Of obstructive [facility] pulmonary disease, unspecified Office Visit 06/03/2017 [facility] Internal Suki J44.1 Chronic 11:20a Will Pandya M.D. obstructive [place] pulmonary disease w (acute) exacerbation Office Visit 09/09/2016 Pulmonology And Stephanie Garza, J44.9 Chronic 10:00a Sleep Services Of MD donna Moreno pulmonary disease, unspecified F17.210 Nicotine dependence, cigarettes, uncomplicated Office 01/05/2016 [facility] Internal Suki E78.0 Pure hypercholesterolemia Visit 2:20p Will Pandya M.D. 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 general adult [place] medical exam w abnormal findings M81.0 Age-related osteoporosis w/o current pathological fracture E78.2 Mixed hyperlipidemia M67.441 Ganglion, right hand Z13.6 Encounter for screening for cardiovascular disorders Z23 Encounter for immunization Office Visit 12/05/2014 [facility] Internal Suki 272.4 Hyperlipidemia Other 10:00a Will Pandya M.D. Unspec [place] V76.0 Screening Malignant Neoplasm Respiratory Organs 726.19 Shoulder Disorders Other Spec 733.00 Osteoporosis Unspec 719.41 Pain Joint Shoulder Region Office Visit 06/07/2014 3:00p [facility] Internal Suki V70.0 Examination Will Pandya M.D. General Medical [place] Routine AT [facility] 496 COPD Airway Obstruction Chronic Not Class Elsewhere 272.4 Hyperlipidemia Other Unspec 733.00 Osteoporosis Unspec 790.21 Impaired Fasting Glucose V73.89 Screening Examination Viral Diseases Other Spec V76.0 Screening Malignant Neoplasm Respiratory Organs 238.2 Neoplasm Uncertain Skin 792.1 Stool Contents Abnormal Office Visit 08/09/2013 3:20p [facility] Internal Suki V72.84 Examination Will Pandya M.D. Preoperative [place] Unspec 366.9 Cataract Unspec 496 COPD Airway Obstruction Chronic Not Class Elsewhere Office Visit 07/13/2013 9:20a [facility] Internal Suki 496 COPD Airway Will Pandya M.D. Obstruction [place] Chronic Not Class Elsewhere V04.81 Need For Prophylactic Vaccination & Inoculation/Influenza Office Visit 07/06/2013 9:00a [facility] Internal Suki 465.9 URI Upper Will Pandya M.D. Respiratory [place] Infections Acute Unspec Sites Office Visit 06/04/2013 2:00p [facility] Internal [place] V70.0 Examination Will Pandya M.D. General Medical [place] Routine AT [facility] Care Facility 496 COPD Airway Obstruction Chronic Not Class Elsewhere 733.00 Osteoporosis Unspec 427.89 Cardiac Dysrhythmia Other 305.1 Tobacco Use Disorder V03.82 Streptococcus Pneumoniae Vaccination Spec Other Office Visit 12/03/2012 10:00a [facility] Internal [place] 496 COPD Airway Will Pandya M.D. Obstruction Russell Chronic Not Class Elsewhere 272.4 Hyperlipidemia Other Unspec 790.21 Impaired Fasting Glucose 285.9 Anemia Unspec Office Visit 06/01/2012 10:20a [facility] Internal [place] V70.0 Examination Will Pandya M.D. General [facility] Routine AT [facility] Care [facility] 496 COPD Airway Obstruction Chronic Not Class Elsewhere 305.03 Alcohol Abuse In Remission Office Visit 02/11/2012 9:40a [facility] Internal [place] 311 Depressive Will Pandya M.D. Disorder Not [place] Elsewhere Spec 285.8 Anemia Other Spec 496 COPD Airway Obstruction Chronic Not Class Elsewhere V76.44 Screening For Malig Reese Prostate 272.4 Hyperlipidemia Other Unspec Office Visit 11/15/2011 3:20p [facility] Internal [place] 311 Depressive Will Pandya M.D. Disorder Not [place] Elsewhere Spec 733.00 Osteoporosis Unspec 496 COPD Airway Obstruction Chronic Not Class Elsewhere Office Visit 09/05/2011 DO Not Use [place] 311 Depressive 9:40a Etelvina Pandya M.D. Disorder Not Elsewhere Spec Office Visit 05/31/2011 DO Not Use [place] V70.0 Examination 10:20a Etelvina Pandya M.D. General Medical Routine AT [facility] 285.8 Anemia Other Spec 733.00 Osteoporosis Unspec Office Visit 04/11/2011 DO Not Use [place] 305.03 Alcohol Abuse 11:40a Etelvina Pandya M.D. In Remission 285.8 Anemia Other Spec Office Visit 11/22/2010 DO Not Use [place] 496 COPD Airway 10:15a Etelvina Pandya M.D. Obstruction Chronic Not Class Elsewhere Office Visit 05/21/2010 DO Not Use [place] 496 COPD Airway 3:45p Etelvina Pandya M.D. Obstruction Chronic Not Class Elsewhere Office Visit 03/19/2010 DO Not Use [place] V70.0 Examination 1:45p Etelvina Pandya M.D. General Medical Routine AT [facility] 496 COPD Airway Obstruction Chronic Not Class Elsewhere Office Visit 10/03/2009 1:30p DO Not Use [place], 496 COPD Airway Etelvina Reynaga M.D. Obstruction Chronic Not Class Elsewhere 692.9 Dermatitis Unspec Cause Due To Spec Agents Other V04.81 Need For Prophylactic Vaccination & Inoculation/Influenza Office Visit 03/17/2009 DO Not Use [place], V70.0 Examination 1:30p Etelvina Reynaga M.D. General Medical Routine AT [facility] 496 COPD Airway Obstruction Chronic Not Class Elsewhere 733.00 Osteoporosis Unspec V05.8 Single Disease Spec Other Vaccination & Inoculation Office Visit 12/05/2008 DO Not Use [place], 780.2 Syncope & 2:15p Etelvina Reynaga M.D. Collapse Office Visit 08/17/2008 DO Not Use [place], 733.90 Bone & 10:00a Etelvina Reynaga M.D. Cartilage Disorder Unspec 496 COPD Airway Obstruction Chronic Not Class Elsewhere V05.3 Viral Hepatitis Vaccination & Inoculation Office Visit 02/15/2008 DO Not Use [place], V70.0 Examination 10:45a Etelvina Reynaga M.D. General Medical Routine AT [facility] 733.00 Osteoporosis Unspec 496 COPD Airway Obstruction Chronic Not Class Elsewhere 268.9 Vitamin D Deficiency Unspec 599.7 Hematuria V05.3 Viral Hepatitis Vaccination & Inoculation Office Visit 11/10/2006 DO Not Use [place], V70.0 Examination 1:30p Etelvina Reynaga M.D. General Medical Routine AT [facility] V06.1 Jaamovkqff-Qkywmas-Eokymsyc Combined (DTaP) Office Visit 05/09/2006 12:45p DO Not Use [place], 496 COPD Airway Etelvina Reynaga M.D. 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 at [facility]11/11/2018 9:00 am - Stephanie Garza MD at [facility]08/23/2019 4:20 pm - Suki Pandya M.D. at [facility] Internal Medicine - Ylxtmdufz66/11/2019 - Remy Stewart M.D.I48.91 Unspecified atrial fibrillationNew Medication:Amiodarone HCL 200 mg - 1 twice a day for 2 weeks then decrease to 1 a dayNew Orders:Echocardiogram, Ordered: Cardioversion, Ordered: 10/16/18Follow up:2 monthsRecommendations:Stop Multaq ON 10/20/18, Start Amiodarone 200 mg twice a day for 2 weeks then decrease to 200 mg suooyE61.9 Chronic obstructive pulmonary disease, bkhwvrjllmuA80.9 Cardiomyopathy, unspecified
--- OUTSIDE RECORDS SUMMARY | 2018-11-11 11:24 | XMS REPORT | Continuity of Care Document ---
:1950 External Reference #:[id number] Author Name JohnJacquie Care Team Providers Name Role Phone Suki Pandya MD Primary Care Physician Unavailable Payers Type Date Identification Numbers Payment Provider Subscriber Effective: 2017 Policy Number: [id number] Medicare Fanta Doherty PayID: [id number] [address] [place] [address] Effective: 2007 Policy Number: [id number] [facility] Fanta Doherty Group Number: [id number] [address] [address] PayID: [id number] [place] [address] Advance Directives Description No Information Available Problems [...] Single Lives With Girlfriend Mona Naylor - Brad 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 Quit at [facility] 04/15. Resumed 2011 Tobacco Use Start: Unknown End: Former Cigarette Quit smoking in Unknown Smoker July of 2018. Haas started smoking at age 18, smoked 1/2 ppd and more in earlier years Smoking Status Reviewed: 09/09/18 Former Cigarette Quit smoking in Smoker July [...] Form Strength Qnty SIG Indications Ordering Provider Multaq 09/22/ Active Tablets 400mg 60tab 1 by mouth Remy Bullard 2017 s twice a day Shalonda Stewart Symbicort 09/09/ Active Aerosol 80-4.5mcg 30.6u 2 puff Stephanie 2015 /Act nits twice a day MD Kayla Docusate Sodium 01/04/ Active Capsules 100mg 60cap 1 by mouth Suki 2015 s once a day Mumtaz (lucero Liz taking 250mg) Spiriva 08/09/ Active Capsules 18mcg 30cap inhale the [facility] Handihaler 2012 s contents of Mumtaz one nhi Liz in the handihaler once daily Fluvoxamine 06/01/ Active Caps ER 25mg 1 PO QHS Suki Maleate 2011 24HR Shalonda Pandya Multi Vitamin 04/11/ Active Tablets 1 po qd Suki Mens 2010 Shalonda Pandya Aspirin 03/17/ Active Tablets 81mg 30tab 1 tablet 2009 s once daily Shalonda Pandya Vitamin D-3 / Active Tablets 1000Unit 90tab 1 po qd Unknown 0000 s Pristiq / Active 100mg 1 daily Unknown 0000 Olanzapine / Active Tablets 2.5mg 1 by mouth Unknown 0000 every day Calcium 600 0000/ Active Tablets 600mg 1 by mouth Unknown 0000 every day Eliquis / Active Tablets 5mg 60tab 1 by mouth Suki s twice a day Shalonda Pandya Carvedilol / Active Tablets 25mg 60tab 1 tab by Suki 0000 s mouth in [place], morning M.DBrenna Carvedilol / Active Tablets 12.5mg 60tab 1 by mouth Suki 0000 s in evening DuncanShalonda Lasix / Active Tablets 20mg 60tab 1 by mouth Suki 0000 s every day Shalonda Pandya Atovaquone-Prog 01/05/ Hx Tablets 250-100mg 15tab 1 tab by Chuyita Bullard uanil HCL 2018 - s mouth [place], 07/24/ daily, 2 M.D. 2018 days before trip, each day there, 7 days after return Ciprofloxacin 01/05/ Hx Tablets 500mg 6tabs 1 tab by Chuyita Bullard HCL 2017 - mouth twice [place], 07/24/ a day if M.D. 2017 needed for diarrhea Azithromycin 06/03/ Hx Tablets 250mg 6tabs 2 tabs by J44.1 Suki 2017 - mouth on [place], 06/12/ day 1; 1 .DBrenna 2016 tab by mouth every day on days 2-5 Nicotrol 08/15/ Hx Inhaler 10mg 168un use up to Z72.0 Suki 2015 - 16 times [place], 08/19/ daily M.DBrenna 2017 Serevent Diskus 03/13/ Hx Aerosol 50mcg/Dos 60uni 1 Suki 2016 - e ts inhalation [place], 09/09/ every 12 M.D. 2016 hours Foradil 08/09/ Hx Capsules 12mcg 60cap 1 via [facility] Aerolizer 2012 - s aerolizer [place], 03/13/ twice a day M.D. 2015 Azithromycin 07/06/ Hx Tablets 250mg 6tabs 2 tabs po 465.9 Suki 2013 - on day 1; 1 [place], 07/13/ tab po qd M.D. 2012 on days 2-5 Nicoderm CQ 04/11/ Hx Patches 21mg/24HR 30uni once daily Suki 2011 - 24HR ts [place], 09/08/ M.D. 2017 Nicotine 04/11/ Hx Patches 4mg/24HR 1Mon as directed Suki 2010 - 24HR [place], 12/03/ M.D. 2012 Foradil 04/11/ Hx Capsules 12mcg 60cap 1 puff bid [facility] Aerolizer 2010 - s prn [place], M.D. 2012 Campral 04/11/ Hx Tablets DR 333mg 120ta 2 tabs PO Suki 2010 - bs bid [place], M.D. 2013 Revia 04/11/ Hx Tablets 50mg 30tab 1 po hs Suki 2010 - s [place], M.D. 2011 Alendronate 03/11/ Hx Tablets 70mg 12tab take 1 Suki Sodium 2010 - s tablet once [place], 05/15/ weekly as M.D. 2016 directed Flovent HFA 11/22/ Hx Aerosol 110mcg/Ac 12gm 2 puffs 496 [facility] 2010 - t twice daily [place], M.D. 2011 Zoloft 05/21/ Hx Tablets 50mg 1 By Mouth Unknown 2009 - Once Daily 2010 Calcium 600 03/19/ Hx Tablets 600mg 2 tablets [facility] 2009 - once daily [place], M.D. 2014 Spiriva 03/19/ Hx Capsules 18mcg 30cap inhale 496 [facility] Handihaler 2009 - s contents of [place], capsule M.D. 2012 by mouth every morning as directed Cymbalta 03/17/ Hx Caps DR 60mg 60cap 1 tablet Unknown 2009 - s once daily 2009 Nortriptyline 03/17/ Hx Capsules 10mg 100ca 2 tablets [facility] HCL 2009 - ps once daily [place], M.D. 2010 Risperdal 03/17/ Hx Tablets 0.5mg 90tab Suki 2009 - s [place], M.D. 2009 Fosamax 03/16/ Hx Tablets 70mg 12tab one tablet Suki 2009 - s once weekly [place], 03/11/ as directed M.D. 2010 Metoprolol 03/16/ Hx Tablets 25mg 30tab Take 1/2 Suki Tartrate 2009 - s Tablet By [place], 07/30/ Mouth Twice M.D. 2018 Daily Zoloft [...] 0000 - tablet by 07/06/ mouth once 2013 daily as needed Risperdal / Hx Tablets 0.25mg 1 po daily Unknown 0000 - 2015 Tylenol / Hx Capsules 325mg 2 tablets Unknown 0000 - every 4 12/04/ hours as 2018 needed for pain Digoxin / Hx Tablets 250mcg 60tab 1 by mouth Suki 0000 - s every day Mumtaz 09/22/ M.Juan Miguel 2018 Immunizations CPT Code Status Date Vaccine Lot # [id number] Given 07/20/2018 Influenza Virus Vaccine, Quadrivalent, Split, Preservative Free [id number] Given 01/05/2018 Tdap - Tetanus/Diptheria/Acellular Pertussis [id number] 40311 Given 01/05/2018 Typhoid Vaccine [id number] 67823 Given 01/05/2018 Hepatitis A Vaccine Adult Dosage [id number] 56122 Given 07/23/2017 Influenza Virus Vaccine, Quadrivalent, Split, Preservative Free [id number] Given 08/27/2016 Flu Vaccine NOS 52889 Given 07/06/2015 Influenza Virus Vaccine, Quadrivalent, Split, [id number] Preservative Free 09753 Given 07/06/2015 Pneumococcal Conjugate Vaccine 13 Valent For [id number] Intramuscular Use 39299 Given 07/13/2013 Flu Vaccine Split Virus Preservative Free For [id number] Indiv [id number] Older 57368 Given 06/04/2013 Pneumonia Vaccine [id number] 13617 Given 10/03/2009 Administration Swine Flu Shot 20568 Given 10/03/2009 Influenza Virus Vaccine, Pandemic Formulation 01772 Given 03/17/2009 Zoster (Zostavax) 09728 Given 08/17/2008 Hepatitis B Vaccine Adult Dosage 16128 Given 08/17/2008 Hepatitis B Vaccine Adult Dosage 90627 Given 03/17/2008 Hepatitis B Vaccine Adult Dosage 62176 Given 03/17/2008 Hepatitis B Vaccine Adult Dosage 63557 Given 02/15/2008 Hepatitis B Vaccine Adult Dosage 28707 Given 02/15/2008 Hepatitis B Vaccine Adult Dosage 70611 Given 11/10/2006 Tdap - Tetanus/Diptheria/Acellular Pertussis Vital Signs Date Vital Result Comment 09/09/2018 8:52am Height 72 inches 6'0" Weight [...] Result H/L Range Note Laboratory test 08/10/2018 [facility] Digoxin 1.2 ng/ml N 0.8- 2.0 finding [address] [place] [address] [phone] Lipid Profile 08/06/2018 [facility] Triglycerides 91 mg/dL 1, 2 (Trig/Chol/HDL) [address] [place] [address] [phone] Cholesterol 154 mg/dL 3 HDL Cholesterol 47.0 mg/dL 4 LDL Cholesterol 89 mg/dL 5 Comp Metabolic Panel 08/06/2018 [facility] Sodium 143 mmol/L N 135-145 [address] [place] [address] [phone] Potassium 3.8 mmol/L N 3.5-5.0 Chloride 104 [...] Egfr 87.4 >60 6 Laboratory test 08/06/2018 [facility] Digoxin 1.2 ng/ml N 0.8- 2.0 [address] [place] [address] [phone] Laboratory test 07/24/2018 [facility] Troponin-I 0.05 ng/mL High <0.[address] (TnI) [place] [address] [phone] CBC Auto Diff 07/24/2018 [facility] White Blood 9.8 N 3.5- 10.[address] Count 10^3/[place] [address] [phone] Red Blood Count 4.74 10^6/uL N 4.00-5.40 [...] Red Blood Cells % 0.1 Inr/Protime 07/24/2018 [facility] Inr 1.53 High 0.77-1.[address] [place] [address] [phone] Laboratory test 07/24/2018 [facility] Partial 27.2 N 26.0- 36.[address] [place] [address] Time PTT [phone] Lactic Acid 2.0 mmol/L N 0.5-2.0 9 B-Type Natriuretic Peptide BNP 1964 pg/mL High 10 Comp Metabolic Panel 07/24/2018 [facility] Sodium 137 mmol/L N 135-[address] [place] [address] [phone] Potassium 4.4 mmol/L N 3.5-5.0 Chloride 104 [...] Egfr 83.6 >60 11 Laboratory test 07/24/2018 [facility] Magnesium 1.6 mg/dL Low 1.9-2.[address] [place] [address] [phone] Troponin-I (TnI) 0.04 ng/mL High <0.04 12 Thyroxine 8.63 g/mL N 6.09-12.23 TSH (Thyroid Stim Horm) 2.88 mcIU/mL N 0.34-5.60 D Dimer Quantitative 622 ng/mL High Less Than 230 13 Urinalysis Profile 07/24/2018 [facility] Urine Color Straw [address] [place] [address] [phone] Urine Appearance Clear Urine Specific [place] 1.006 Low 1.010-1.030 Urine pH 5.0 N 5-9 Urine Urobilinogen Negative Negative Urine Ketones Negative Negative Urine Protein Negative Negative Urine Leukocytes Negative Negative Urine Blood Negative Negative Urine Nitrite Negative Negative Urine Bilirubin Negative Negative Urine Glucose Negative Negative Laboratory test 03/09/2018 [facility] PSA Screening 1.719 ng/mL 0-4.0 [address] [place] [address] [phone] Lipid Profile 08/18/2017 [facility] Triglycerides 108 mg/dL 15 (Trig/Chol/HDL) [address] [place] [address] [phone] Cholesterol 188 mg/dL 16 HDL Cholesterol 62.2 mg/dL 17 LDL Cholesterol 104 mg/dL 18 Comp Metabolic Panel 08/18/2017 [facility] Sodium 143 mmol/L N 133-[address] [place] [address] [phone] Potassium 4.2 mmol/L N 3.5-5.0 Chloride 107 [...] Egfr 111.9 >60 19 Laboratory test 09/03/2016 [facility] Surgical Interface SEE RESULT 20, [address] [place] [address] [phone] Lipid Profile 08/12/2016 [facility] Triglycerides 117 mg/dL N 22 (Trig/Chol/HDL) [address] [place] [address] [phone] Cholesterol 195 mg/dL N 23 HDL Cholesterol 61.3 mg/dL N 24 LDL Cholesterol 110 mg/dL N 25 Comp Metabolic Panel 08/12/2016 [facility] Sodium 140 mmol/L N 133-[address] [place] [address] [phone] Potassium 3.9 mmol/L N 3.5-5.0 Chloride 105 [...] 123.6 N >60 26 Laboratory test 08/12/2016 [facility] Vitamin D 45.5 ng/mL N 30-[address] Total 25(Oh) [place] [address] [phone] Hemoglobin A1c (Glyco HGB) 5.8 % N Less than 6.0 27 Basic Metabolic Panel 02/05/2016 [facility] Sodium 141 mmol/L N 133-[address] [place] [address] [phone] Potassium 4.0 mmol/L N 3.5-5.0 Chloride 105 mmol/L N 101-111 Co2 Carbon Dioxide 31 mmol/L N 22-32 Anion Gap 5 mmol/L N 2-11 Glucose 71 mg/dL N 70-100 Blood Urea Nitrogen 10 mg/dL N 6-24 Creatinine 0.82 mg/dL N 0.67-1.17 BUN/Creatinine Ratio 12.2 N 8-20 Calcium 9.2 mg/dL N 8.6-10.3 Egfr Non- 93.7 N >60 Egfr 120.5 N >60 28 Laboratory test 02/05/2016 [facility] PSA Screening 1.344 ng/mL N 0-4.0 29 finding [address] [place] [address] [phone] Lipid Profile 01/04/2016 [facility] Triglycerides 118 mg/dL N 30 (Trig/Chol/HDL) [address] [place] [address] [phone] Cholesterol 198 mg/dL N 31 HDL Cholesterol 58.6 mg/dL N 32 LDL Cholesterol 116 mg/dL N 33 Comp Metabolic Panel 01/04/2016 [facility] Sodium 141 mmol/L N 133-145 [address] [place] [address] [phone] Potassium 4.3 mmol/L N 3.5-5.0 Chloride 105 [...] N >60 34 Basic Metabolic Panel 06/26/2015 [facility] Sodium 139 mmol/L N 133-145 [address] [place] [address] [phone] Potassium 4.2 mmol/L N 3.5-5.0 Chloride 103 mmol/L N 101-111 Co2 Carbon Dioxide 30 mmol/L N 22-32 Anion Gap 6 mmol/L N 2-11 Glucose 97 mg/dL N 70-100 Blood Urea Nitrogen 13 mg/dL N 6-24 Creatinine 0.82 mg/dL N 0.67-1.17 BUN/Creatinine Ratio 15.9 N 8-20 Calcium 9.4 mg/dL N 8.6-10.3 Egfr Non- 93.7 N >60 Egfr 120.5 N >60 35 Laboratory test 06/26/2015 [facility] PSA Diagnostic 0.846 ng/ mL N 0-4.0 36 finding [address] [place] [address] [phone] Lipid Profile 12/05/2014 [facility] Triglycerides 124 mg/dL N 37 (Trig/Chol/HDL) [address] [place] [address] [phone] Cholesterol 197 mg/dL N 38 HDL Cholesterol 59.6 mg/dL N 39 LDL Cholesterol 113 mg/dL N 40 Comp Metabolic Panel 12/05/2014 [facility] Sodium 141 mmol/L N 133-145 [address] [place] [address] [phone] Potassium 3.9 mmol/L N 3.5-5.0 Chloride 104 [...] 90.2 N >60 Egfr 116.0 N >60 41 Vitamin D, 25 12/05/2014 [facility] 25-Hydroxy Vitamin <4.0 ng/ mL N Hydroxy [address] [address] [phone] 25-Hydroxy Vitamin D3 54 ng/mL N 25-Hydroxy Vitamin D Total 54 ng/mL N 42 Laboratory 12/05/2014 [facility] Hepatitis C Nonreactive N Nonreactive test finding [address] [place] [address] [phone] Hemoglobin A1c 5.8 % N Less than 6.0 43 Laboratory test 05/21/2013 [facility] Pathologist (SEE NOTE) [address] [place] [address] [phone] Manual 05/21/2013 [facility] Neutrophil % 32 % Low 38-[address] [place] [address] [phone] Lymphocytes % 51 % High 25-47 Monocytes % 4 % 0-13 Eosinophils % 9 % High 0-6 Basophil % 2 % 0-2 Reactive Lymph % 2 % 0-6 RBC Morphology Normal Normal CBC Auto Diff 05/21/2013 [facility] White Blood 6.8 10^3/uL 4.8-10.[address] [place] [address] [phone] Red Blood Count 4.29 10^6/uL 4.0-5.4 Hemoglobin [...] 10^3/uL 0-0.2 Abs Nucleated RBC 0 10^3/uL Laboratory test 05/21/2013 [facility] Hemoglobin A1c 5.7 % Less than [address] 6.0 [place], [place] [address] [phone] Comp Metabolic 05/21/2013 [facility] Sodium 139 133-[address] mmol/[place] [address] [phone] Potassium 4.3 mmol/L 3.5-5.0 Chloride 102 mmol/L [...] Non- 97.0 >60 Egfr 124.8 >60 46 Lipid Profile 05/21/2013 [facility] Triglycerides 80 mg/dL 40 -200 (Trig/Chol/HDL) [address] [place] [address] [phone] Cholesterol 205 mg/dL High Less than 200 HDL Cholesterol 59 mg/dL 40-60 47 Cholesterol/HDL Ratio 3.5 Average 1-4.44 LDL Cholesterol 130.0 High Less Than 100 48 Laboratory test 05/21/2013 [facility] PSA Diagnostic 1.20 ng/mL 0-4.0 [address] [place] [address] [phone] CBC Auto Diff 08/25/2012 [facility] White Blood 8.1 4.8-10.[address] Count 10^3/[place] [address] [phone] Red Blood Count 4.23 10^6/uL 4.0-5.4 Hemoglobin [...] Cells % 0 Vitamin B12 And 08/25/2012 [facility] Vitamin B12 702 pg/mL 180-914 Folate Serum [address] [place] [address] [phone] Folate 24.5 NG/ML High 2-16 Laboratory test 08/25/2012 [facility] Ferritin 61 NG/ML 24- 336 finding [address] [place], [place] [phone] Iron & Iron Binding 08/25/2012 [facility] Iron 125 UG/ML 45- 182 Capacity [address] [place] [address] [phone] Unsaturated Iron Binding 210 g/dL Total Iron Binding Capacity 335 g/dL 250-450 Transferrin 239.1 % Iron Saturation 37 % 15-55 Laboratory test 08/25/2012 [facility] LDH 141 U/L 95-185 finding [address] [place] [address] [phone] Laboratory test 06/10/2012 [facility] PSA,Diagnostic 1.01 0- [address] [place] [address] NG/ML [place], [place] [address] [phone] Laboratory test 06/10/2012 [facility] Hemoglobin A1c 5.8 % Less Than [address] [place] [address] 6.0 [place] [address] [phone] Lipid Profile 06/10/2012 [facility] Triglyceride 84 mg/dL 40- 200 (Trig/Chol/HDL) [address] [place] [address] [phone] Cholesterol 192 mg/dL Less Than 200 52 High Density Lipoprotein 62 mg/dL High 40-60 53 Cholesterol/HDL Ratio 3.10 AVERAGE 1-4.97 Low Density Lipoprotein 113 mg/dL High Less Than 100 54 Comp Metabolic Panel 06/10/2012 [facility] Sodium 139 mmol/L 135-[address] [place] [address] [phone] Potassium 4.2 mmol/L 3.5-5.0 Chloride 105 mmol/L [...] > 60 57 CBC Auto Diff 06/10/2012 [facility] White Blood 7.9 CUMM 4.8- 10.[address] [place] [address] [phone] Red Cell Count 4.02 CUMM Low 4.6-6.2 [...] Basophils 0.1 0-0.2 CBC Auto Diff 03/13/2012 [facility] White Blood 8.1 CUMM 4.8- 10.[address] [place] [address] [phone] Red Cell Count 4.33 CUMM Low 4.6-6.2 [...] Basophils 0 0-0.2 Comp Metabolic Panel 03/13/2012 [facility] Sodium 138 mmol/L 135-[address] [place] [address] [phone] Potassium 3.7 mmol/L 3.5-5.0 Chloride 99 mmol/L [...] 71.5 > 60 60 Laboratory test 03/13/2012 [facility] Acetaminophen < 10 g/mL Low 10-30 [address] [place] [address] [phone] Alcohol < 10.0 mg/dL None Detected 62 Salicylate < 4.0 mg/dL Less Than 30 63 Urine Drug 03/13/2012 [facility] Amphetamines NONE DETECTED None SCR ED & [address] Urine [place] [address] [phone] Barbituates Urine Screen NONE DETECTED None Detect Benzodiazepine Ur Screen NONE DETECTED None Detect Cannabinoid Urine Screen NONE DETECTED None Detect Cocaine Metabolites Urine NONE DETECTED None Detect Opiates Urine Screen NONE DETECTED None Detect PCP Urine Screen NONE DETECTED None Detect 64 Urinalysis W/Microscopic 03/13/2012 [facility] Ua Color YELLOW Yellow [address] [place] [address] [phone] Appearance-Urine CLEAR Clear Specific [place]-Ur 1.024 1.010-1.030 Esterase-Urine NEGATIVE Negative Nitrite NEGATIVE Negative [id number] NEGATIVE Negative Protein-Urine NEGATIVE Negative PH-Urine 5.5 5-9 Blood-Urine TRACE Abnormal Negative Ketones-Urine NEGATIVE Negative Bilirubin-Ur NEGATIVE Negative Glucose-Urine 1+ Abnormal Negative Hyaline Casts-Urine 0-3 0-2 WBC-Urine 0-2 0-5 RBC-Urine RARE 0-2 Mucus Urine SMALL None Epith Cells-Ur MODERATE None Bacteria-Urine 1+ None Surgical 08/13/2011 [facility] Surgical [address] Pathology <SEE NOTE> [place] [address] [phone] CBC Auto Diff 06/01/2011 [facility] White Blood 8.5 CUMM 4.8 - [address] Count 10.8 [place] [address] [phone] Red Cell Count 4.46 CUMM Low 4.6-6.2 [...] 0 0-0.2 66 Vitamin B12 And 06/01/2011 [facility] Vitamin B12 449 pg/mL 180-914 Folate Serum [address] [place] [address] [phone] Folic Acid 17.6 NG/ML High 2-16 Laboratory test 06/01/2011 [facility] Ferritin 69 NG/ML 24- 336 finding [address] [place] [address] [phone] Iron & Iron Binding 06/01/2011 [facility] Iron Total 69 g/dL 45-182 Capacity [address] [place] [address] [phone] Unsaturated Iron Binding 251 g/dL Total Iron Binding Capacity 320 g/dL 250-450 % Iron Saturation 22 % 15-55 Vitamin D, 25 06/01/2011 [facility] 25-Hydroxy Vitamin <4.0 ng/ mL () Hydroxy [address] [facility] [address] [place] [address] [phone] 25-Hydroxy Vitamin D3 33 ng/mL () 25-Hydroxy Vitamin D Total 33 ng/mL () 67 Lipid Profile 04/10/2011 [facility] Triglyceride 47 mg/dL 40- 200 (Trig/Chol/HDL) [address] [place] [address] [phone] Cholesterol 181 mg/dL Less Than 200 68 High Density Lipoprotein 68 mg/dL High 40-60 69 Cholesterol/HDL Ratio 2.66 AVERAGE 1-4.97 Low Density Lipoprotein 104 mg/dL High Less Than 100 70 Iron & Iron Binding 04/10/2011 [facility] Iron Total 121 g/dL 45-182 Capacity [address] [place] [address] [phone] Unsaturated Iron Binding 238 g/dL Total Iron Binding Capacity 359 g/dL 250-450 % Iron Saturation 34 % 15-55 Laboratory test 04/10/2011 [facility] PSA,Diagnostic 1.34 NG/ML 0-4 71 finding [address] [place] [address] [phone] Comp Metabolic 04/10/2011 [facility] Sodium 138 mmol/L 135- 145 Panel [address] [place] [address] [phone] Potassium 3.9 mmol/L 3.5-5.0 Chloride 103 mmol/L [...] > 60 74 CBC No Diff 04/10/2011 [facility] White Blood Count 6.8 CUMM 4.8-10.8 [address] [place] [address] [phone] Red Cell Count 4.00 CUMM Low 4.6-6.2 Hemoglobin 13.0 g/dL Low 14.0-18.0 Hematocrit 39 % Low 42-52 Mean Corpuscular Volume 98 um3 High 80-94 Mean Corpuscular Hemoglob 32 pg High 27-31 Mean Corpuscular HGB Cone 33 g/dL 32-36 Redcell Distribution WDTH 13 % 10.5-15 Platelet Count 226 CUMM 150-450 Mean Platelet Volume 8.4 um3 7.4-10.4 PSA Free And Total 07/05/2010 [facility] Total PSA 1.2 ng/mL 0.0-4.1 [address] [place] [address] [phone] Free PSA 0.2 ng/mL () Free PSA/PSA Ratio . () 75 Laboratory test 05/02/2010 [facility] PSA,Diagnostic 2.46 NG/ML 0-4 76 finding [address] [place] [address] [phone] Lipid Profile 03/20/2010 [facility] Triglyceride 72 mg/dL 40- 200 (Trig/Chol/HDL) [address] [place] [address] [phone] Cholesterol 164 mg/dL Less Than 200 77 High Density Lipoprotein 70 mg/dL High 40-60 78 Cholesterol/HDL Ratio 2.34 AVERAGE 1-4.97 Low Density Lipoprotein 80 mg/dL Less Than 100 79 Comp Metabolic Panel 03/20/2010 [facility] Sodium 139 mmol/L 135-145 [address] [place] [address] [phone] Potassium 4.3 mmol/L 3.5-5.0 Chloride 103 mmol/L 101-111 Co2 (Carbon Dioxide) 28.0 mmol/L 22-32 Anion Gap 8.0 mmol/L 2-11 80 Glucose 105 mg/dL High 70-100 81 BUN 11 mg/dL 6-24 Creatinine 0.80 mg/dL 0.50-1.40 One Over Creatinine 1.20 BUN/Creatinine Ratio 13.8 8-20 Calcium 9.3 mg/dL 8.1-9.9 82 Total Protein 5.9 GM/DL Low 6.2-8.1 Albumin 4.2 GM/DL 3.2-5.2 Globulin 1.7 GM/DL Low 2-4 Albumin/Globulin Ratio 2.5 1-3 Bilirubin Total 0.9 mg/dL 0.4-1.5 83 Alkaline Phosphatase 48 U/L 39-117 Alt (SGPT) 18 U/L 17-63 Ast (Sgot) 20 U/L 12-42 eGFR Non- 104.1 > 60 eGFR 126.0 > 60 84 CBC With 03/20/2010 [facility] White Blood 6.7 CUMM 4.8-10.8 Electronic Diff [address] [place] [address] [phone] Red Cell Count 4.41 CUMM Low 4.6-6.2 [...] Eosinophils 0.5 0-0.6 Abs Basophils 0 0-0.2 Laboratory test 03/20/2010 [facility] PSA,Diagnostic 2.27 NG/ML 0-4 [address] [place] [address] [phone] Vitamin D, 25 03/20/2010 [facility] 25-Hydroxy Vitamin <4.0 ng/ mL () Hydroxy [address] [place] [address] [phone] 25-Hydroxy Vitamin D3 42 ng/mL () 25-Hydroxy Vitamin D Total 42 ng/mL () 86 1 FASTING 10 HOUR 2 Desirable: <150 [...] 10 HOUR 8 Result TnIDx:0.05 Called to [id number] at: 20:50:34 by:[id number] Read back by: [id number] [facility] Severe Sepsis and Septic Shock Management [...] (or dialysis) 12 Result TnIDx:0.04 Called to [id number] at: 18:34:05 by:[id number] Read back by: [id number] Please note: The following may produce a false positive D Dimer test: - Rheumatoid factor greater than 60 IU/ml - Plasma hemoglobin greater than 0.05 gm/dl - Bilirubin greater than 50 mg/dl - Lipids greater than 1000 mg/dl - FDP greater than 20 ug/ml 14 Serum levels of PSA measured using the Jorge Arian DXI Hybritech immunoassay should not be interpreted [...] 5 Kidney failure <15 (or dialysis) 20 [id number] 21 SEE RESULT BELOW Name: FANTA DOHERTY : [address]: Mac Mcclelland MD Acct: [id number] Unit: [id number] AGE: 66 Location: [facility] Re09/03/16 SEX: M Status: REG REF SPEC: [id number] ROGERIO: 09/03/16- SUBM DR: Mac Mcclelland MD REQ: [id number] RECD: 09/03/16-1300 STATUS: ANDI FLANNERY DR: Suki Pandya MD _ ORDERED: LEVEL IV COMMENTS: [id number] FINAL DIAGNOSIS Colon, at 30 cm, biopsy: [...] performed at Main Lab DEPARTMENT OF PATHOLOGY, [address] [place] [address] Jeffery Blue M.D. Director [facility] # [id number] 22 Desirable <150 Borderline high 150-199 High [...] and in selective patients <6.0%.Please refer to [place] [employer] Diabetic care guidelines for further [...] Serum levels of PSA measured using the Dmailer DXI Hybritech immunoassay should not be interpreted [...] Serum levels of PSA measured using the Dmailer DXI Hybritech immunoassay should not be interpreted as absolute evidence of the presence or absence of disease. The PSA value should be used in conjunction with other pertinent clinical diagnostic procedures. The values obtained with different assay methods or kits cannot be used interchangeably. 37 Desirable <150 Borderline high 150-199 High 200-499 Very High >500 38 Desirable <200 Borderline high 200-239 High >239 39 Low <40 Desirable: 40-60 High: >60 40 Desirable <100 Near Optimal 100-129 Borderline high 130-159 High 160-189 Very High >189 41 Because ethnic data is not always readily [...] 15-29 5 Kidney failure <15 (or dialysis) 42 Interpretation: 51-80 ng/mL (increased risk of hypercalciuria) REFERENCE VALUE 25-HYDROXY D TOTAL (D2+D3) Optimum levels in the healthy population are 20-50, patients with bone disease may benefit from higher levels within this range. Test Performed by: [facility] [address] [address] Testing Analyst: Vikas Heller II, M.D., Ph.D. 43 Therapeutic target for the treatment of diabetes Mellitus patients is <7% HBA1C, and in selective patients <6.0%.Please refer to [place] [employer] Diabetic care guidelines for further information. 44 CBC and smear reviewed. Inverted PMN/lymph ratio noted. No blasts seen. Reviewed by Cyndee Childress MD 45 Therapeutic target for the treatment of diabetes Mellitus patients is <7% HBA1C, and in selective patients <6.0%.Please refer to [place] [employer] Diabetic care guidelines for further information. 46 Because ethnic data is not always [...] 5 Kidney failure <15 (or dialysis) 47 HDL Interpretation: Undesirable: High Risk: Less than 40 mg/dL Desirable: Low Risk: Greater than 60 mg/dL 48 LDL Interpretation: Low Risk Optimal Level: LDL Less than 100 mg/dL Near or Above Optimal: LDL 100-129 mg/dL Borderline High Risk: LDL 130-159 mg/dL High Risk: LDL 160-189 mg/dL Very High Risk: LDL Greater than 189 mg/dL 49 Serum levels of PSA measured using the Jorge Marblar DXI Hybritech immunoassay should not be interpreted as absolute evidence of the presence or absence of disease. The PSA value should be used in conjunction with other pertinent clinical diagnostic procedures. The values obtained with different assay methods or kits cannot be used interchangeably. 50 * SERUM LEVELS OF PSA MEASURED USING THE JORGE ARIAN ACCESS HYBRITECH IMMUNOASSAY SHOULD NOT BE INTERPRETED [...] IN SELECTIVE PATIENTS <6.0%. PLEASE REFER TO [place] [employer] DIABETIC CARE GUIDELINES FOR FURTHER [...] has been shown to interfere with the Jendrassik-Longcreek method for measuring total bilirubin. Samples from [...] has been shown to interfere with the Jendrassik-Longcreek method for measuring total bilirubin. Samples from [...] ONLY. . 65 ---- RUN DATE: 08/15/11 [facility] NMI LIVE PAGE 1 RUN TIME: 1438 Specimen Inquiry RUN USER: INTERFACE -- Name: BESSYFANTA Status: REG REF Re08/13/11 Age/Sex: 61/M Unit#: [id number] Location: [facility] : 48 -- Specimen: [id number] SOUT Spec Date: 08/13/[address]: Mac wagner MD Spec Type: SURGICAL P Received: 08/14/11-1011 Copies to: Suki mix MD SPECIMEN 1) THICKENED FOLD AT 40 CM. BIOPSIES 2) CECAL POLYP HISTORY POST-OP DIAGNOSIS: To cecum - polyp by snare CLINICAL INFORMATION: History of polyps GROSS DESCRIPTION 1) The specimen is received in formalin labelled Fanta Del RealBrenna MalloyDoherty, Thickened Fold at 40 cm. Biopsies, and [...] 08/15/11 1437 -- -- DEPARTMENT OF PATHOLOGY, [address] [place] [address] [facility] Permit #[id number] Jeffery Blue M.D. Director Gretel Reyes M.D. Jigsawyer Dir lupe -- 66 Lymphopenia % 67 -- REFERENCE VALUE -- 25-HYDROXY D TOTAL (D2+D3) Optimum levels in the normal population are 25-80 Test Performed by: [facility] Dpt of Lab Med and Pathology [address] [place] [id number] Testing Analyst: Tyrese Coffey III, M.D. 68 CHOLESTEROL INTERPRETATION: Desirable: Less than 200 MG/DL Borderline-High Risk: 200-239 MG/DL High-Risk: 240 MG/DL and over 69 HDL INTERPRETATION: Undesirable: High Risk: Less than 40 MG/DL Desirable: Low Risk: Greater than 60 MG/DL 70 LDL INTERPRETATION: Low Risk Optimal Level: LDL Less than 100 MG/DL Near or Above Optimal: LDL 100-129 MG/DL Borderline High Risk: LDL 130-159 MG/DL High Risk: LDL 160-189 MG/DL Very High Risk: LDL Greater than 189 MG/DL 71 * SERUM LEVELS OF PSA MEASURED USING THE JORGE ARIAN ACCESS HYBRITECH IMMUNOASSAY SHOULD NOT BE INTERPRETED ABSOLUTE EVIDENCE OF THE PRESENCE OR ABSENCE OF DISEASE. THE PSA VALUE SHOULD BE USED IN CONJUNCTION WITH OTHER PERTINENT CLINICAL DIAGNOSTIC PROCEDURES. 72 Anion gap measurement may be of [...] method is an immunoenzymatic assay manufactured by [employer] and performed on the Flint [employer] T[employer] DXI 800. Values obtained with different assay methods or kits may be different and cannot be used interchangeably. Test results cannot be interpreted as absolute evidence for the presence or absence of malignant disease. Test Performed by: [facility] Dpt of Lab Med and Pathology [address] [place], [place] [id number] Testing Analyst: Tyrese Coffey III, M.D. 76 * SERUM LEVELS OF PSA MEASURED USING THE JORGE ARIAN ACCESS HYBRITECH IMMUNOASSAY SHOULD NOT BE INTERPRETED ABSOLUTE EVIDENCE OF THE PRESENCE OR ABSENCE OF DISEASE. THE PSA VALUE SHOULD BE USED IN CONJUNCTION WITH OTHER PERTINENT CLINICAL DIAGNOSTIC PROCEDURES. 77 CHOLESTEROL INTERPRETATION: Desirable: Less than 200 MG/DL Borderline-High Risk: 200-239 MG/DL High-Risk: 240 MG/DL and over 78 HDL INTERPRETATION: Undesirable: High Risk: Less than 40 MG/DL Desirable: Low Risk: Greater than 60 MG/DL 79 LDL INTERPRETATION: Low Risk Optimal Level: LDL Less than 100 MG/DL Near or Above Optimal: LDL 100-129 MG/DL Borderline High Risk: LDL 130-159 MG/DL High Risk: LDL 160-189 MG/DL Very High Risk: LDL Greater than 189 MG/DL 80 Anion gap measurement may be of limited value in the presence of any alkalosis, especially in a combined acid base disorder. . 81 Note change in reference range as of 05/26/08. The change was based on recommendations from the [place] [employer]. 82 Please note change in reference range effective 08 . 83 A metabolite of Naproxen, O-desmethylnaproxen, has been shown to interfere with the Jendrassik-Longcreek method for measuring total bilirubin. Samples from patients who have taken Naproxen have shown spurious elevation in total bilirubin levels. 84 Because ethnic data is not always readily [...] 15-29 5 Kidney failure <15 (or dialysis) 85 * SERUM LEVELS OF PSA MEASURED USING THE DormNoise ACCESS HYBRITECH IMMUNOASSAY SHOULD NOT BE INTERPRETED ABSOLUTE EVIDENCE OF THE PRESENCE OR ABSENCE OF DISEASE. THE PSA VALUE SHOULD BE USED IN CONJUNCTION WITH OTHER PERTINENT CLINICAL DIAGNOSTIC PROCEDURES. 86 -- REFERENCE VALUE -- 25-HYDROXY D TOTAL (D2+D3) Optimum levels in the normal population are 25-80 Test Performed by: [facility] of Lab Med and Pathology [address] [place] [address] Testing Analyst: Tyrese Coffey III, M.D. Procedures Date Code Description Status 09/22/2018 78714 Moderate Sedation Services; Same Phys Intl 15 Mins; PT Completed >=5 Years 09/22/2018 10022 Color Flow Doppler/Interp & Reprt Completed 09/22/2018 67553 Pulse Wave/Continuous-Interp.RPT Completed 09/22/2018 20999 Echocardiography, Transesophageal, Real Time W/Image Completed 2D W/W/O M-M 09/22/2018 67268 Cardioversion Completed 08/18/2018 48227 EKG Tracing & Interpretation Completed 07/26/2018 88302 ECHO Transthorasic Realtime 2D W Doppler & Color Flow Completed Hosp 07/24/2018 80896 EKG Tracing & Interpretation Completed 08/27/2017 [id number] Bone Mineral Density Test Completed 10/03/2016 17020 Pulmonary Function><Bronchodil Completed 10/03/2016 51387 Pulmonary Stress Test Simple Completed 10/03/2016 29374 Plethysmography Determination Lung Volumes & Per Completed Airway Resist 10/03/2016 04519 Diffusing Capacity Completed 09/03/2016 [id number] Colonoscopy Completed 01/22/2016 56733 ECHO Transthoracic, Real-Time 2D With Doppler And Completed Color Flow 06/16/2014 [id number] Bone Mineral Density Test Completed 07/20/2013 030090434 Diabetic Retinal Eye Exam Completed 06/04/2013 32016 EKG Tracing & Interpretation Completed 08/13/2011 [id number] Colonoscopy Completed 06/11/2011 661605510 Bone Mineral Density Test Completed 05/31/2011 34743 EKG Tracing & Interpretation Completed 03/19/2010 26430 EKG Tracing & Interpretation Completed 03/19/2010 20198 Spirometry Incl Graphic Record, Timed Expiratory Flow Completed Rate 03/17/2009 89699 EKG Tracing & Interpretation Completed 12/07/2008 97382 Holter Monitor Review (24 hr)dr [facility] only Completed 12/05/2008 25083 EKG Tracing & Interpretation Completed 04/12/2008 92587451 Colonoscopy Completed 02/18/2008 384925387 Bone Mineral Density Test Completed 02/15/2008 37158 EKG Tracing & Interpretation Completed 02/15/2008 04079 EKG Tracing & Interpretation Completed Encounters Type Date Location Provider Dx Diagnosis Office Visit 09/09/2018 Pulmonology And Stephanie Kayla, J44.9 Chronic obstructive 9:00a Sleep Services Of pulmonary disease, [facility] unspecified Z87.891 Personal history of nicotine dependence Z12.2 Encntr screen for malignant neoplasm of respiratory organs Office Visit 08/18/2018 2:00p [facility] Remy Bullard I48.91 Unspecified atrial Of [employer] Loss Specialist AT [facility] Shalonda Stewart fibrillation I42.9 Cardiomyopathy, unspecified I51.3 Intracardiac thrombosis, not elsewhere classified Office Visit 08/06/2018 2:40p [facility] Internal Suki I48.91 Unspecified atrial Medicine - Shalonda Pandya fibrillation Byron R63.4 Abnormal weight loss Office Visit 07/30/2018 [facility] I48.0 Paroxysmal atrial 10:51a Assoc,maddison Ríos M.D. fibrillation Hospitalists I50.20 Unspecified systolic (congestive) heart failure I51.3 Intracardiac thrombosis, not elsewhere classified F32.9 Major depressive disorder, single episode, unspecified J44.9 Chronic obstructive pulmonary disease, unspecified Office Visit 07/29/2018 [facility] Farzana Lauren, I42.9 Cardiomyopathy, 11:59a Cardiology Chevy Liz unspecified [facility] I48.91 Unspecified atrial fibrillation Office Visit 07/29/2018 [facility] I51.3 Intracardiac 10:51a maddison Hilario M.D. thrombosis, not Hospitalists elsewhere classified I48.0 Paroxysmal atrial fibrillation I50.9 Heart failure, unspecified J44.9 Chronic obstructive pulmonary disease, unspecified F32.9 Major depressive disorder, single episode, unspecified Office Visit 07/28/2018 [facility] I51.3 Intracardiac 10:50a Assmaddison barbosa M.D. thrombosis, not Hospitalists elsewhere classified I48.0 Paroxysmal atrial fibrillation I50.9 Heart failure, unspecified J44.9 Chronic obstructive pulmonary disease, unspecified F32.9 Major depressive disorder, single episode, unspecified Office Visit 07/28/2018 [facility] Remy Bullard I42.9 Cardiomyopathy, 3:47p Cardiology Of Shalonda Stewart unspecified [facility] I24.0 Acute coronary thrombosis not resulting in myocardial infrc I50.9 Heart failure, unspecified Office Visit 07/27/2018 [facility] Jeanmarie Calderon I51.3 Intracardiac 10:50a maddison Hilario MD thrombosis, not Hospitalists elsewhere classified I48.0 Paroxysmal atrial fibrillation I50.9 Heart failure, unspecified K76.9 Liver disease, unspecified J44.9 Chronic obstructive pulmonary disease, unspecified F32.9 Major depressive disorder, single episode, unspecified Office Visit 07/27/2018 Surgical Fernie S. K82.8 Other specified 7:00a Associates Of MD Joya diseases of [facility] gallbladder Office Visit 07/27/2018 [facility] Remy Bullard I48.91 Unspecified atrial 8:52a Cardiology Chevy Stewart M.D. fibrillation [facility] I50.9 Heart failure, unspecified Office Visit 07/26/2018 [facility] Jeanmarie Calderon I51.3 Intracardiac 10:50a maddison Hilario MD thrombosis, not Hospitalists elsewhere classified I48.0 Paroxysmal atrial fibrillation I50.9 Heart failure, unspecified K76.1 Chronic passive congestion of liver J44.9 Chronic obstructive pulmonary disease, unspecified F32.9 Major depressive disorder, single episode, unspecified Office Visit 07/25/2018 [facility] Jeanmarie Calderon I48.0 Paroxysmal atrial 10:49a Assoc,maddison Mendoza MD fibrillation Hospitalists I50.9 Heart failure, unspecified R94.5 Abnormal results of liver function studies J44.9 Chronic obstructive pulmonary disease, unspecified F32.9 Major depressive disorder, single episode, unspecified Office Visit 07/24/2018 10:49a [facility] Jannet I48.0 Paroxysmal atrial Assoc,maddison Marr DO fibrillation Hospitalists D68.9 Coagulation defect, unspecified J44.1 Chronic obstructive pulmonary disease w (acute) exacerbation E83.42 Hypomagnesemia F32.9 Major depressive disorder, single episode, unspecified Office Visit 07/24/2018 3:30p [facility] Internal Maria Del Rosario Montes De Oca I48.0 Paroxysmal atrial Medicine - MD henley [place] F17.210 Nicotine dependence, cigarettes, uncomplicated R18.8 Other ascites Office Visit 01/05/2018 1:20p [facility] Nilson Bullard Z71.9 Counseling, Infectious Shalonda Carrillo unspecified Diseases Z23 Encounter for immunization Office Visit 09/09/2017 Pulmonology And Leonidas Mendez44.9 Chronic 10:00a Sleep Services Of MD donna Moreno pulmonary disease, unspecified Office Visit 06/03/2017 [facility] Edson Cohn J44.1 Chronic 11:20a Will Pandya M.D. 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 general adult Byron medical exam w abnormal findings M81.0 Age-related osteoporosis w/o current pathological fracture E78.2 Mixed hyperlipidemia M67.441 Ganglion, right hand Z13.6 Encounter for screening for cardiovascular disorders Z23 Encounter for immunization Office Visit 12/05/2014 [facility] Internal Suki 272.4 Hyperlipidemia Other 10:00a Will Pandya M.D. Unspec Byron V76.0 Screening Malignant Neoplasm Respiratory Organs 726.19 Shoulder Disorders Other Spec 733.00 Osteoporosis Unspec 719.41 Pain Joint Shoulder Region Office Visit 06/07/2014 3:00p [facility] Internal Suki V70.0 Examination Will Pandya M.D. [facility] Routine AT Health Care Facility 496 COPD Airway Obstruction Chronic Not Class Elsewhere 272.4 Hyperlipidemia Other Unspec 733.00 Osteoporosis Unspec 790.21 Impaired Fasting Glucose V73.89 Screening Examination Viral Diseases Other Spec V76.0 Screening Malignant Neoplasm Respiratory Organs 238.2 Neoplasm Uncertain Skin 792.1 Stool Contents Abnormal Office Visit 08/09/2013 3:20p [facility] Internal Suki V72.84 Examination Will Pandya M.D. Preoperative Byron Unspec 366.9 Cataract Unspec 496 COPD Airway Obstruction Chronic Not Class Elsewhere Office Visit 07/13/2013 9:20a [facility] Internal Suki 496 COPD Airway Will Pandya M.D. Obstruction Byron Chronic Not Class Elsewhere V04.81 Need For Prophylactic Vaccination & Inoculation/Influenza Office Visit 07/06/2013 9:00a [facility] Internal Suki 465.9 URI Upper Will Pandya M.D. Respiratory Byron Infections Acute Unspec Sites Office Visit 06/04/2013 2:00p [facility] Internal Suki V70.0 Examination Will Pandya M.D. [facility] Routine AT Health Care Facility 496 COPD Airway Obstruction Chronic Not Class Elsewhere 733.00 Osteoporosis Unspec 427.89 Cardiac Dysrhythmia Other 305.1 Tobacco Use Disorder V03.82 Streptococcus Pneumoniae Vaccination Spec Other Office Visit 12/03/2012 10:00a [facility] Internal Suki 496 COPD Airway Will Pandya M.D. Obstruction Byron Chronic Not Class Elsewhere 272.4 Hyperlipidemia Other Unspec 790.21 Impaired Fasting Glucose 285.9 Anemia Unspec Office Visit 06/01/2012 10:20a [facility] Internal Suki V70.0 Examination Will Pandya M.D. General Medical Byron Routine AT Health Care Facility 496 COPD Airway Obstruction Chronic Not Class Elsewhere 305.03 Alcohol Abuse In Remission Office Visit 02/11/2012 9:40a [facility] Internal Suki 311 Depressive Will Pandya M.D. Disorder Not Byron Elsewhere Spec 285.8 Anemia Other Spec 496 COPD Airway Obstruction Chronic Not Class Elsewhere V76.44 Screening For Malig Reese Prostate 272.4 Hyperlipidemia Other Unspec Office Visit 11/15/2011 3:20p [facility] Internal Suki 311 Depressive Will Pandya M.D. Disorder Not Byron Elsewhere Spec 733.00 Osteoporosis Unspec 496 COPD Airway Obstruction Chronic Not Class Elsewhere Office Visit 09/05/2011 DO Not Use Suki 311 Depressive 9:40a Etelvina Pandya M.D. Disorder Not Elsewhere Spec Office Visit 05/31/2011 DO Not Use Suki V70.0 Examination 10:20a Etelvina Pandya M.D. General Medical Routine AT Health Care [facility] 285.8 Anemia Other Spec 733.00 Osteoporosis Unspec Office Visit 04/11/2011 DO Not Use Suki 305.03 Alcohol Abuse 11:40a Etelvina Pandya M.D. In Remission 285.8 Anemia Other Spec Office Visit 11/22/2010 DO Not Use Skui 496 COPD Airway 10:15a Etelvina Pandya M.D. [...] Office Visit 10/03/2009 1:30p DO Not Use Viviana Valencia COPD Airway Etelvina Reynaga M.D. Obstruction Chronic Not Class Elsewhere 692.9 Dermatitis Unspec Cause Due To Spec Agents Other V04.81 Need For Prophylactic Vaccination & Inoculation/Influenza Office Visit 03/17/2009 DO Not Use Annie V70.0 Examination 1:30p Etelvina Reynaga M.D. General Medical Routine AT Health Care Facility 496 COPD Airway Obstruction Chronic Not Class Elsewhere 733.00 Osteoporosis Unspec V05.8 Single Disease Spec Other Vaccination & Inoculation Office Visit 12/05/2008 DO Not Use [place], 780.2 Syncope & 2:15p Etelvina Reynaga M.D. [...] Medical Routine AT Health Care Facility V06.1 Fwhoomjlvd-Cgxhzdg-Zixlyhro Combined (DTaP) Office Visit 05/09/2006 12:45p DO Not Use [place], 496 COPD Airway Etelvina Reynaga M.D. Obstruction Chronic Not Class Elsewhere 268.9 Vitamin D Deficiency Unspec 733.90 Bone & Cartilage Disorder Unspec Plan of Treatment Future Appointment(s):11/11/2018 9:00 am - Stephanie Garza MD at [facility]ology [facility] Of [facility]08/23/2019 4:20 pm - Suki Pandya M.D. at [facility] Internal Medicine [facility]09/09/2018 - Stephanie Garza MDJ44.9 Chronic obstructive pulmonary disease, unspecifiedFollow up:1 qjsjsL16.891 Personal history of nicotine usohtskjjgM68.2 Encounter for screening for malignant neoplasm of respiratorNew Xrays:CT Lung Screening-Low Dose, Scheduled: 10/07/18
[2018-11-11 14:47] VITALS: BP 104/65
--- NOTE | 2018-11-12 03:56 | CONS ---
HOSPITAL MEDICINE CONSULTATION REPORT: DATE OF CONSULT: 11/11/18 - EMERGENCY DEPT PROVIDER: Letty Monzon NP ATTENDING PHYSICIAN: Dr. Castano, emergency room. CONSULTING PHYSICIAN: Dr. Quincy Peña. REASON FOR CONSULT: Hypotension. HISTORY OF PRESENT ILLNESS: Mr. 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 While at the truck dock material mover, the patient was there for routine followup and was found to have blood pressure in the 80s. Due to this concern, the patient was transferred to the emergency room for further evaluation. The patient reports that he presented to the hospital on 11/09/18 for an elective cardioversion with Dr. Stewart. At that time, he was found to be in sinus rhythm, so the cardioversion was canceled and today, he had a routine followup appointment with his truck dock material mover and while at the pulmonology office , he had routine vital signs taken where they found him to be hypotensive with the blood pressure systolically in the 80s. Due to the hypotension, the patient was referred to emergency room for further evaluation. The patient denies any recent fevers, chills. Denies any dizziness or lightheadedness. Denies any chest pain or shortness of breath. He does report he has had a cough with productive yellow sputum times a few weeks. Denies any hemoptysis or shortness of breath, nausea, vomiting or diarrhea. Denies any abdominal pain , gross hematuria, dysuria, focal weakness or sensory loss. Denies any visual complaints, dysphagia, arthralgias, myalgias, rashes, lesions, psychosis or anxiety. PAST MEDICAL HISTORY: Significant for: 1. Atrial fibrillation. 2. Congestive heart failure. 3. Cardiomyopathy, nonischemic. 4. COPD, moderate to severe. 5. Depression. 6. Osteopenia. 7. GERD. 8. Cyst in the bladder, follows with Dr. Cerna. PAST SURGICAL HISTORY: 1. Cataract removal. 2. Basal cell carcinoma, removed. HOME MEDICATIONS: 1. Lasix 20 mg p.o. daily. 2. Carvedilol 12.5 mg p.o. q.p.m. 3. Carvedilol 25 mg p.o. q.a.m. 4. Apixaban 5 mg p.o. b.i.d. 5. Calcium carbonate 600 mg p.o. daily. 6. Zyprexa 2.5 mg p.o. daily. 7. Pristiq 100 mg p.o. daily. 8. Vitamin D3 1000 units p.o. daily. 9. Enteric coated aspirin 81 mg p.o. daily. 10. Multivitamin 1 tab p.o. daily. 11. Fluvoxamine 25 mg p.o. at bedtime. 12. Spiriva 1 cap p.o. b.i.d. 13. Docusate sodium 250 mg p.o. daily. 14. Amiodarone 50 mg p.o. daily, recently decreased from 100 mg p.o. daily. ALLERGIES: PENICILLIN. FAMILY HISTORY: Mother due to pulmonary embolism after a hip fracture at the age of 82. Father due to cancer of the stomach. SOCIAL HISTORY: The patient was a former smoker, quit smoking approximately 4 months ago. Denies any alcohol or illicit drug use. Surrogate decision maker in the event he is unable to make his own decisions is his girlfriend, Vijaya. He is a full code. REVIEW OF SYSTEMS: There has been no documented fever. No unintended weight loss. No chest pain or edema. He does report cough. Denies any hemoptysis or shortness of breath. Denies any nausea, vomiting, diarrhea, abdominal pain, hematuria, dysuria, focal weakness, sensory loss, visual complaints, dysphagia, arthralgias, myalgias, rashes, lesions, psychosis or anxiety. Denies any dizziness or lightheadedness, syncopal episodes. Review of 14 systems was completed, all others are negative. PHYSICAL EXAMINATION: Vital Signs: Blood pressure 104/65, heart rate was 99, respirations are 18, O2 saturation 93% on room air, temperature was 98.2. General: Mr. Ahn is a 68-year-old male. He is sitting on the stretcher in the emergency room. He is not in any acute distress. HEENT: Head is atraumatic, normocephalic. Eyes: EOMs are intact. Sclerae anicteric and not pale. Oral mucosa appeared to be moist. Neck is supple. Lungs are clear to auscultation bilaterally. No wheezes, rales, or rhonchi. Cardiac: S1, S2. Irregular rate and rhythm. No murmurs, rubs, or gallops. Abdomen is soft and nontender. Bowel sounds are present x4. Extremities: No edema noted to bilateral lower extremities. Pedal pulses are +2. Neurologic: He is awake, alert, oriented x3. Speech is clear. Thought process is intact. There are no gross focal deficits. Skin is intact. DIAGNOSTIC STUDIES/LAB DATA: WBCs are 8.5, RBCs 5.11, hemoglobin 15.2, hematocrit was 46, platelet count was 285,000. INR was 1.41. Sodium 143, potassium 4.2, chloride 101, carbon dioxide was 34, anion gap was 8, BUN was 24 , creatinine 1.26, glucose was 116. Lactic acid 2.7 initially, repeat was 0.5. Calcium was 10.2. Troponin was 0.01 x2. BNP was 574, which is lower than his previous BNPs. Chest x-ray: Hyperinflation, no active cardiopulmonary disease. IMPRESSION AND PLAN: Mr. 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 We were asked by the emergency room physician to consult due to his hypotension. Our recommendations are as follows: 1. Hypotension. I suspect that his hypotension is related to his low ejection fraction of 20% to 25%. The patient reports that he feels in his normal state of health. He denies any dizziness or lightheadedness upon standing. He does have orthostatic hypotension. He was given gentle IV hydration while in the emergency room. Again, the patient has no symptoms. He denies any dizziness or lightheadedness. I did speak to Dr. Holden from Cardiology and reviewed the case with him, informing Dr. Holden that the patient was currently in atrial fibrillation, that his rate was controlled, and the patient was asymptomatic. Given that the patient is asymptomatic, Dr. Holden felt that again his orthostatic hypotension was related to his poor ejection fraction of 20% to 25% and at this time, the patient is stable to be discharged home. He should continue to wear his LifeVest as previously prescribed and continue all of his home medications as previously prescribed. Dr. Holden recommended that the patient follow up with his carbonation equipment operator in the next 1 to 2 weeks. 2. Atrial fibrillation. The patient is currently in atrial fibrillation that is rate controlled. He is asymptomatic. He denies any chest pain or shortness of breath. It was recommended by Dr. Holden that the patient follow up with his carbonation equipment operator as an outpatient for further management of his atrial fibrillation. At this time, it was not indicated that the patient be admitted for cardioversion and that the patient was stable for discharge home. The patient should continue on his Eliquis as previously prescribed and continue all of his rate control agents, amiodarone and carvedilol as previously prescribed by his carbonation equipment operator. 3. Chronic obstructive pulmonary disease. The patient should continue on his Spiriva inhaler and medications as previously prescribed by his truck dock material mover. 4. Cardiomyopathy. The patient should continue on carvedilol, amiodarone, and Lasix as previously prescribed. After discussion with Cardiology, the patient and case was reviewed, it was determined that the patient was stable for discharge home and he should follow up with his carbonation equipment operator as an outpatient. This was communicated to Dr. Castano in the emergency room, who will discharge the patient home. TIME SPENT: On this consultation was approximately 60 minutes, more than half that time was spent in consultation with the patient, reviewing events leading thus far to his hospitalization, performing physical exam, and reviewing my recommendations for care. I have discussed this with my attending, Dr. Quincy Peña, he is in agreement with my plan. LETTY MONZON, PAROLE AGENT [id number]/[facility] #: [id number] MATTHEW
== END 2018-11-11 14:50 | disposition home or self-care (01) ==
LOC: ED 09:57
DX: I95.1 Orthostatic hypotension (principal); I50.9 Heart failure, unspecified; I48.91 Unspecified atrial fibrillation; Z79.01 Long term (current) use of anticoagulants; Z79.82 Long term (current) use of aspirin; I42.9 Cardiomyopathy, unspecified; J44.9 Chronic obstructive pulmonary disease, unspecified; Z88.0 Allergy status to penicillin; F17.210 Nicotine dependence, cigarettes, uncomplicated
CPT/HCPCS: 36415; 71045; 80053; 83605; 83880; 84484; 85025; 85610; 85730; 87040; 93005; 96360; 96361; 99284

== ENCOUNTER → 2019-01-01 00:13 | Emergency (ER) | payer MEDICARE, BC ==
[~2019-01-01 00:13] MED LIST: Diltiazem IV* 5 MG/ML 5 ML VIAL (for loading dose/IV Push) (25 MG) IV SLOW PU ONE; NS 0.9% 1000 ML** 1,000 ML IV ONE
--- NOTE | 2019-01-01 01:03 | ED ---
Palpitations / Dysrhythmia - HPI Summary HPI Summary: This patient is a 68 year old male presenting to [facility] with a chief complaint of weakness, palpitations since 1400 12/31/18. Patient states he suddenly felt weakness with chills and upon checking his HR, noticed that it was irregular. Patient also experienced SOB. Patient has a hx of a fib. Sx progressively worsened throughout the day, prompting ED visit. The pain is rated 0/10 in severity. Symptoms aggravated by nothing. Symptoms alleviated by nothing - History of Current Complaint Chief Complaint: EDDysrhythmPalp Time Seen by Provider: 01/01/19 00:36 Hx Obtained From: Patient Onset/Duration: Lasting Hours, Still Present Timing: Constant Severity Initially: Mild Severity Currently: Moderate Character: Irregular Aggravating: Nothing Alleviating: Nothing - Allergy/Home Medications Allergies/Adverse Reactions: Allergies Allergy/AdvReac Type Severity Reaction Status Date / Time Penicillins Allergy Unknown Verified 01/01/19 00:23 Reaction Details PMH/Surg Hx/FS Hx/Imm Hx Previously Healthy: No Endocrine/Hematology History: Denies: Hx Anticoagulant Therapy, Hx Diabetes, Hx Thyroid Disease Cardiovascular History: Reports: Hx Atrial Fibrillation, Hx Congestive Heart Failure, Hx Hypercholesterolemia Denies: Hx Hypertension, Hx Pacemaker/ICD Respiratory History: Reports: Hx Chronic Obstructive Pulmonary Disease (COPD) Denies: Hx Asthma History: Denies: Hx Renal Disease Musculoskeletal History: Denies: Hx Osteoporosis Sensory History: Reports: Hx Cataracts - 2006 RIGHT EYE, Hx Contacts or Glasses - GLASSES Denies: Hx Hearing Aid Opthamlomology History: Reports: Hx Cataracts - 2006 RIGHT EYE, Hx Contacts or Glasses - GLASSES Neurological History: Denies: Hx Dementia, Hx Seizures Psychiatric History: Reports: Hx Anxiety, Hx Depression Denies: Hx Substance Abuse - Cancer History Cancer Type, 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 Hx Chemotherapy: No - Surgical History Surgery Procedure, Year, and Place: tonsilectomy,hand, Hx Anesthesia Reactions: No Infectious Disease History: No Infectious Disease History: Denies: Hx Hepatitis, Hx Human Immunodeficiency Virus (HIV), Traveled Outside the [place] in Last 30 Days - Family History Known Family History: Negative: Cardiac Disease, Diabetes - Social History Alcohol Use: Rare Hx Substance Use: No Substance Use Type: Reports: None Hx Tobacco Use: Yes Smoking Status (MU): Current Every Day Smoker Type: Cigarettes Have You Smoked in the Last Year: Yes Review of Systems Positive: Chills. Negative: Fever Positive: Palpitations Positive: Shortness Of Breath Positive: Weakness All Other Systems Reviewed And Are Negative: Yes Physical Exam - Summary Physical Exam Summary: Appearance: Well-appearing, Well-nourished, lying in bed comfortably, does not appear distressed or toxic Skin: Warm, dry, no obvious rash Eyes: sclera anicteric, no conjunctival pallor ENT: mucous membranes moist, pharynx appears normal Neck: Supple, nontender Respiratory: Breath sounds diminished on left. No dullness to percussion associated with this Cardiovascular: Rapid and irregularly irregular. Distal pulses in tibial and radial bilaterally. Abdomen: Soft, nontender, normal active bowel sounds present Musculoskeletal: Normal, Strength/ROM Intact Neurological: A&Ox3, awake and alert, mentation is normal, speech is fluent and appropriate Psychiatric: affect is normal, does not appear anxious or depressed Triage Information Reviewed: Yes Vital Signs On Initial Exam: Initial Vitals Temp Pulse Resp BP Pulse Ox 97.3 F 81 18 156/78 93 01/01/19 00:15 01/01/19 00:15 01/01/19 00:15 01/01/19 00:15 01/01/19 00:15 Vital Signs Reviewed: Yes Diagnostics - Vital Signs Vital Signs Temp Pulse Resp BP Pulse Ox 01/01/19 00:15 97.3 F 81 18 156/78 93 - Laboratory Result Diagrams: 01/01/19 01:02 01/01/19 01:02 Lab Statement: Any lab studies that have been ordered have been reviewed, and results considered in the medical decision making process. - Radiology CXR Radiology Interpretation Completed By: ED Physician Summary of Radiographic Findings: CXR reveals, per ED physician, no acute process. Pending official report. - EKG 28 Cardiac Rate: Tachycardia EKG Rhythm: Atrial Fibrillation - 143 BPM Summary of EKG Findings: An EKG, taken 28, reveals Atrial Fibrillation (143 BPM), Rapid Ventricular Response. Course/Dx - Course Course Of Treatment: This patient is a 68 year old male presenting to [facility] with a chief complaint of weakness, palpitations since 1400 12/31/18. Patient states he suddenly felt weakness with chills and upon checking his HR, noticed that it was irregular. Patient also experienced SOB. Patient has a hx of a fib. Sx progressively worsened throughout the day, prompting ED visit. An EKG, taken 002, reveals Atrial Fibrillation (143 BPM), Rapid Ventricular Response. CXR reveals, per ED physician, no acute process. Pending official report. Bloodwork Obtained. Urinalysis Obtained. In the ED course the patient was given Diltiazem , NS 0.9% bolus IV. Patient will be discharged with a dx of atrial fibrillation. Patient is advised to follow up with pre kindergarten teacher tomorrow. The patient is agreeable with this plan. - Diagnoses Provider Diagnoses: Atrial fibrillation with RVR Discharge - Sign-Out/Discharge Documenting (check all that apply): Patient Departure Patient Received Moderate/Deep Sedation with Procedure: No - Discharge Plan Condition: Improved Disposition: HOME Patient Education Materials: A-fib (Atrial Fibrillation) (ED) Referrals: Suki Pandya MD [Primary Care Provider] - Additional Instructions: Contact your pre kindergarten teacher tomorrow to let them know you had another bout of the atrial fibrillation. It appears to have corrected itself for the time being. I am not recommending any changes in your medications at present. The only blood abnormality was a mild elevation of your TSH; this could mean you have an underactive thyroid but would require further testing to characterize and see if you need thyroid medication. Mention it to your doctor at your next appointment. - Billing Disposition and Condition Condition: IMPROVED Disposition: Home - Attestation Statements Document Initiated by Jere: Yes Documenting Suzanibe: Rudy Dwyer Provider For Whom Jere is Documenting (Include Credential): Rubén Acosta MD Scribe Attestation: Rudy Scott, scribed for Rubén Acosta MD on 01/02/19 at 0149. Scribe Documentation Reviewed: Yes Provider Attestation: The documentation as recorded by the Rudy aguilar accurately reflects the service I personally performed and the decisions made by me, Rubén Acosta MD Status of Jere Document: Viewed
[2019-01-01 01:16] LABS: ABS Basophils 0 10^3/ul (0-0.2); ABS Eosinophils 0.4 10^3/ul (0-0.6); ABS Lymphocytes 1.6 10^3/ul (1.0-4.8); ABS Monocytes 0.7 10^3/ul (0-0.8); ABS Neutrophils 6.3 10^3/ul (1.5-7.7); ABS Nucleated RBC 0 10^3/ul; Eosinophil % 4.5 %; Hematocrit 41 % (36-46); Lymphocyte % 17.8 %; Mean Corpuscular HGB Conc 34 g/dL (31-36); Mean Corpuscular Hemoglobin 32 pg (27-31); Mean Corpuscular Volume 93 fL (80-94); Mean Platelet Volume 7.7 fL (7.4-10.4); Nucleated Red Blood Cells % 0; Platelet Count 220 10^3/uL (150-450); Red Cell Distribution Width 14 % (10.5-15); White Blood Count 9.1 10^3/uL (3.5-10.8)
[2019-01-01 01:35] LABS: Albumin/Globulin Ratio 1.5 (1-3); BUN/Creatinine Ratio 11.3 (8-20); Calcium 9.4 mg/dL (8.6-10.3); EGFR African American 64.3 (>60); EGFR Non-African American 53.2 (>60); Globulin 2.6 g/dL (2-4); Magnesium 1.8 mg/dL (1.9-2.7); Total Bilirubin 0.5 mg/dL (0.2-1.0); Total Protein 6.6 g/dL (6.4-8.9); Troponin I 0.03 ng/mL (<0.04)
[2019-01-01 01:53] LABS: TSH (Thyroid Stimulating Horm) 8.48 mcIU/mL (0.34-5.60)
[2019-01-01 03:37] VITALS: BP 110/71
== END | disposition home or self-care (01) ==
LOC: ED 00:13
DX: I48.91 Unspecified atrial fibrillation (principal); R06.02 Shortness of breath; R53.1 Weakness; R00.2 Palpitations; I50.9 Heart failure, unspecified; J44.9 Chronic obstructive pulmonary disease, unspecified; Z88.0 Allergy status to penicillin; F17.210 Nicotine dependence, cigarettes, uncomplicated
CPT/HCPCS: 36415; 71045; 80053; 83605; 83735; 83880; 84443; 84484; 85025; 93005; 96360; 96361; 99282

== ENCOUNTER 2019-12-29 10:13 | Day surgery (SDC) | payer MEDICARE, BC ==
[~2019-12-29 10:13] MED LIST changes: +Buffered Lidocaine 1% SYRIN* 1 ML/SYRINGE INTRADERM ONE; -Diltiazem IV* 5 MG/ML 5 ML VIAL (for loading dose/IV Push) (25 MG) IV SLOW PU ONE; +Lactated Ringers 1000 ML Bag* 1,000 ML IV SCH; -NS 0.9% 1000 ML** 1,000 ML IV ONE
[2019-12-29] MEDS ORDERED: Buffered Lidocaine 1% SYRIN* 1 ML/SYRINGE INTRADERM ONE (10:47)
[2019-12-29] MEDS ORDERED: Lidocaine 1% INJ* 10 MG/ML 30 ML SDV ONE (11:38)
[2019-12-29] MEDS ORDERED: Benzocaine/Butamben/Tetracain (CETACAINE - SINGLE USE) 5 gm TOPICAL ONE (11:38)
[2019-12-29] MEDS ORDERED: Propofol* 10 MG/ML 20 ML BTL ONE (11:44)
[2019-12-29] MEDS ORDERED: Glycopyrrolate IV* 0.2 MG/ML 1 ML VIAL ONE (11:44)
[2019-12-29] MEDS ORDERED: Etomidate* 2 MG/ML 10 ML VIAL ONE (11:44)
[2019-12-29] MEDS ORDERED: Succinylcholine* 20 MG/ML 10 ML VIAL ONE (11:44)
[2019-12-29] MEDS ORDERED: fentaNYL* 50 MCG/ML 2 ML VIAL (100 MCG VIAL) ONE (11:47)
[2019-12-29] MEDS ORDERED: Rocuronium* 10 MG/ML VIAL ONE (11:49)
[2019-12-29] MEDS ORDERED: Phenylephrine 40 MCG/ML SYRINGE ONE (11:50)
--- NOTE | 2019-12-29 12:58 | BRIEFOPN ---
Brief Operative/Procedure Note - Operation Details Pre-Op Diagnosis: Rt middle lobe collapse Post-Op Diagnosis: Mucus plugs Procedures: Bronchoscopy with bronchial washings on right side Surgeon(s)/Proceduralists: mynor Garza Anesthesia: GA Estimated Blood Loss: None Findings: Thick mucus, no endobronchial lesions Specimen(s)/Culture(s) Description: Bronchial washings from rt side Complications: Brief period of bradycardia towards end of procedure, BP and O2 sats were normal
[2019-12-29] MEDS ORDERED: Naloxone* 0.4 MG/ML 1 ML VIAL IV PRN (13:02)
--- NOTE | 2019-12-29 13:32 | PRO ---
BRONCHOSCOPY REPORT: DATE OF PROCEDURE: 12/29/19 PROCEDURE PERFORMED: Bronchoscopy with bronchoalveolar lavage. PREPROCEDURAL DIAGNOSIS: Right middle lobe collapse. ANESTHESIA: General anesthesia. DESCRIPTION OF PROCEDURE: Informed consent was obtained from the patient prior to the procedure after all the risks and benefits were thoroughly explained. Appropriate time-out was performed and agreed on my attending staff prior to the procedure. The patient was intubated with size 8.0 endotracheal tube. Flexible Olympus bronchoscope was inserted through ET tube for airway inspection. The patient noted to have thick secretions emanating from the right side which were suctioned out. No lesions noted in the trachea. Bronchoscope was then advanced into the left bronchial tree which was inspected. No endobronchial lesion were noted. Thin secretions were noted and suctioned out. Bronchoscope was subsequently advanced into the right bronchial tree. The patient noted to have thick dark yellow to green mucous emanating from right upper lobe and lower lobe bronchus. No endobronchial lesions were noted on the right side. Mucous was suctioned out. Bronchial washings were obtained from right middle lobe area. The patient tolerated the procedure well. The patient had episode of bradycardia that lasted few seconds, recovered quickly. The patient remained hemodynamically stable during that time with good blood pressures. He was not hypoxemic at that time. Procedure was just suspended at that time when bradycardia was noted. The patient was extubated and seen in recovery in optimal condition. [id number]/[facility] #: [id number] MTDD
[2019-12-29 13:42] VITALS: BP 139/87
== END 2019-12-29 13:40 | disposition home or self-care (01) ==
LOC: OR 10:13
PROVIDERS: ATTEND Internal Medicine
DX: J98.19 Other pulmonary collapse (principal); I10 Essential (primary) hypertension; I48.91 Unspecified atrial fibrillation; J44.9 Chronic obstructive pulmonary disease, unspecified; I42.9 Cardiomyopathy, unspecified; Z87.891 Personal history of nicotine dependence; R06.00 Dyspnea, unspecified; Z79.01 Long term (current) use of anticoagulants; M81.0 Age-related osteoporosis without current pathological fracture; R09.02 Hypoxemia
CPT/HCPCS: 87070; 87102; 87205; 88112; J0330; J2704; J3010

== ENCOUNTER 2021-04-01 17:38 | Inpatient (IN) ==
[2021-04-01] MEDS ORDERED: Diltiazem (ADVAN VIAL) 100 MG/100 ML ADDV.BAG IV ONE (18:11)
[2021-04-01] MEDS ORDERED: Diltiazem IV push/loading dose 5 MG/ML 5 ML vial (25 mg) IV SLOW PU ONE (18:11)
[2021-04-01 18:21] LABS: ABS Eosinophils 0.3 10^3/ul (0-0.6); ABS Lymphocytes 1.4 10^3/ul (1.0-4.8); ABS Monocytes 0.7 10^3/ul (0-0.8); ABS Neutrophils 5.9 10^3/ul (1.5-7.7); Eosinophil % 4.1 %; Hematocrit 38 % (42-52); Hemoglobin 13.1 g/dL (14.0-18.0); Lymphocyte % 16.8 %; Mean Corpuscular HGB Conc 34 g/dL (31-36); Mean Corpuscular Hemoglobin 31 pg (27-31); Mean Corpuscular Volume 92 fL (80-94); Platelet Count 248 10^3/uL (150-450); Red Blood Count 4.18 10^6 /uL (4.18-5.48); Red Cell Distribution Width 14 % (10-15); White Blood Count 8.5 10^3/uL (3.5-10.8)
[2021-04-01 18:37] LABS: Albumin 4.3 g/dL (3.2-5.2); Albumin/Globulin Ratio 1.9 (1-3); Calcium 9.8 mg/dL (8.6-10.3); EGFR African American 68.5 (>60); EGFR Non-African American 56.6 (>60); Globulin 2.3 g/dL (2-4); Magnesium 1.9 mg/dL (1.9-2.7); Potassium 3.7 mmol/L (3.5-5.0); Total Bilirubin 0.4 mg/dL (0.2-1.0); Total Protein 6.6 g/dL (6.4-8.9)
[2021-04-01 18:41] LABS: Troponin I 0.01 ng/mL (<0.03)
[2021-04-01 19:11] LABS: TSH Ultra Thyroid Stim Horm 1.92 mcIU/mL (0.34-5.60)
[2021-04-01] MEDS ORDERED: Magnesium Sulfate IV 1GM/100ML 1 GM/100 ML BAG IV ONE (21:44)
[2021-04-01] MEDS ORDERED: Potassium Chlor 20 meq TAB.ER PO ONE (21:44)
[2021-04-02 00:44] LABS: INR 1.15 (0.82-1.09)
[2021-04-02 02:59] LABS: Urine Bacteria Absent (Absent); Urine Red Blood Cell 3+(>10/hpf) (Absent); Urine White Blood Cell 3+(>20/hpf) (Absent)
[2021-04-02 03:00] LABS: Urine Appearance Turbid; Urine Specific Gravity 1.014 (1.002-1.030)
[2021-04-02 03:01] LABS: Urine Color Red
[2021-04-02 05:57] LABS: ABS Eosinophils 0.5 10^3/ul (0-0.6); ABS Lymphocytes 1.8 10^3/ul (1.0-4.8); ABS Monocytes 0.8 10^3/ul (0-0.8); ABS Neutrophils 3.2 10^3/ul (1.5-7.7); Eosinophil % 7.6 %; Hematocrit 32 % (42-52); Hemoglobin 11.1 g/dL (14.0-18.0); Lymphocyte % 28.9 %; Mean Corpuscular HGB Conc 34 g/dL (31-36); Mean Corpuscular Hemoglobin 31 pg (27-31); Mean Corpuscular Volume 91 fL (80-94); Mean Platelet Volume 7.7 fL (7.4-10.4); Platelet Count 199 10^3/uL (150-450); Red Blood Count 3.55 10^6 /uL (4.18-5.48); Red Cell Distribution Width 14 % (10-15); White Blood Count 6.3 10^3/uL (3.5-10.8)
[2021-04-02 06:12] LABS: Calcium 8.6 mg/dL (8.6-10.3); EGFR African American 83.8 (>60); EGFR Non-African American 69.2 (>60); Potassium 4.3 mmol/L (3.5-5.0)
[2021-04-02 08:34] LABS: Magnesium 2.3 mg/dL (1.9-2.7)
[2021-04-02] MEDS ORDERED: CMC:Desvenlafaxine 50 mg TAB (NF) PO SCH (09:00)
[2021-04-02] MEDS ORDERED: Tiotropium Brom/Olodaterol MDI INH SCH (09:00)
[2021-04-02] MEDS ORDERED: Aspirin EC 81 mg TAB.EC (enteric coated) PO SCH (09:00)
[2021-04-02] MEDS ORDERED: Multivitamins/Minerals TAB PO SCH (09:00)
[2021-04-02] MEDS ORDERED: Calcium (OSCAL) 500 mg TAB PO SCH (09:00)
[2021-04-02 12:46] VITALS: BP 131/74
[2021-04-02] MEDS ORDERED: Polyethylene Glycol 3350 17 GM PACKET PO SCH (18:00)
[2021-04-02] MEDS ORDERED: CMC:FluvoxaMINE 50 mg TAB (NF) PO SCH (21:00)
== END 2021-04-02 15:23 | disposition home or self-care (01) ==
LOC: ED 17:38 → MEDTELE 21:15
PROVIDERS: ADMIT Internal Medicine; ATTEND Internal Medicine

== ENCOUNTER 2021-06-03 16:52 | Observation (INO) ==
[2021-06-03] MEDS ORDERED: Diltiazem IV push/loading dose 5 MG/ML 5 ML vial (25 mg) IV PUSH ONE (17:07)
[2021-06-03] MEDS ORDERED: Diltiazem (ADVAN VIAL) 100 MG/100 ML ADDV.BAG IV ONE (17:08)
[2021-06-03 17:18] LABS: ABS Eosinophils 0.4 10^3/ul (0-0.6); ABS Lymphocytes 1.6 10^3/ul (1.0-4.8); ABS Monocytes 0.6 10^3/ul (0-0.8); ABS Neutrophils 3.1 10^3/ul (1.5-7.7); Eosinophil % 6.5 %; Hematocrit 37 % (42-52); Hemoglobin 12.7 g/dL (14.0-18.0); Lymphocyte % 28.1 %; Mean Corpuscular HGB Conc 34 g/dL (31-36); Mean Corpuscular Hemoglobin 31 pg (27-31); Mean Corpuscular Volume 89 fL (80-94); Mean Platelet Volume 8.1 fL (7.4-10.4); Platelet Count 221 10^3/uL (150-450); Red Blood Count 4.14 10^6 /uL (4.18-5.48); Red Cell Distribution Width 14 % (10-15); White Blood Count 5.7 10^3/uL (3.5-10.8)
[2021-06-03 17:23] LABS: INR 1.77 (0.86-1.15)
[2021-06-03 17:36] LABS: Albumin 4.2 g/dL (3.2-5.2); Albumin/Globulin Ratio 1.9 (1-3); EGFR African American 64.9 (>60); EGFR Non-African American 53.6 (>60); Globulin 2.2 g/dL (2-4); Potassium 3.8 mmol/L (3.5-5.0); Total Bilirubin 0.4 mg/dL (0.2-1.0); Total Protein 6.4 g/dL (6.4-8.9)
[2021-06-03 18:17] LABS: TSH Ultra Thyroid Stim Horm 2.14 mcIU/mL (0.34-5.60)
[2021-06-03] MEDS ORDERED: Potassium Chlor 20 meq TAB.ER PO ONE ×2 (18:45→22:33)
[2021-06-03] MEDS ORDERED: Al Hydrox/Mg Hydrox/Simet LIQ 30 ML UDC PO PRN (22:09)
[2021-06-03] MEDS ORDERED: Digoxin IV 0.5 MG/2 ML AMP (0.25 MG/ML) IV SLOW PU ONE (22:33)
[2021-06-04 06:53] LABS: ABS Basophils 0.1 10^3/ul (0-0.2); ABS Eosinophils 0.5 10^3/ul (0-0.6); ABS Lymphocytes 2.4 10^3/ul (1.0-4.8); ABS Monocytes 0.6 10^3/ul (0-0.8); ABS Neutrophils 3.3 10^3/ul (1.5-7.7); Eosinophil % 7.5 %; Hematocrit 38 % (42-52); Hemoglobin 12.9 g/dL (14.0-18.0); Lymphocyte % 34.6 %; Mean Corpuscular HGB Conc 34 g/dL (31-36); Mean Corpuscular Hemoglobin 31 pg (27-31); Mean Corpuscular Volume 89 fL (80-94); Mean Platelet Volume 8.4 fL (7.4-10.4); Platelet Count 201 10^3/uL (150-450); Red Blood Count 4.21 10^6 /uL (4.18-5.48); Red Cell Distribution Width 14 % (10-15)
[2021-06-04 07:08] LABS: Calcium 8.7 mg/dL (8.6-10.3); EGFR African American 108.4 (>60); EGFR Non-African American 89.6 (>60); Magnesium 1.8 mg/dL (1.9-2.7); Potassium 3.8 mmol/L (3.5-5.0)
[2021-06-04] MEDS ORDERED: Potassium Chlor 20 meq TAB.ER PO ONE (07:30)
[2021-06-04 07:53] VITALS: BP 106/64
[2021-06-04] MEDS ORDERED: Tiotropium Brom/Olodaterol MDI INH SCH (09:00)
[2021-06-04] MEDS ORDERED: Cholecalciferol (VIT D3) 1,000 unit TAB PO SCH (09:00)
[2021-06-04] MEDS ORDERED: Aspirin EC 81 mg TAB.EC (enteric coated) PO SCH (09:00)
[2021-06-04] MEDS ORDERED: Calcium (OSCAL) 500 mg TAB PO SCH (09:00)
[2021-06-04] MEDS ORDERED: CMCS:Desvenlafaxine 50 mg TAB (NF) PO SCH (09:00)
[2021-06-04] MEDS ORDERED: Multivitamins/Minerals TAB PO SCH (09:00)
[2021-06-04] MEDS ORDERED: CMCS:FluvoxaMINE 50 mg TAB (NF) PO SCH (21:00)
== END 2021-06-04 13:15 | disposition home or self-care (01) ==
LOC: ED 16:52 → MEDTELE 16:52
PROVIDERS: ADMIT Internal Medicine; ATTEND Internal Medicine